=== PATIENT | female | born 1960 | race Caucasian/White ===

== ENCOUNTER 2017-05-25 15:48 | Emergency (ER) | payer OTHER, SELFPAY ==
[2017-05-25 16:16] VITALS: BP 124/91; PULSE 97; RESP 20; TEMP 37.6; O2SAT 97; BMI 30.7
--- NOTE | 2017-05-25 16:54 | ED_ITS ---
[facility] [place] Disposition Clinical Impression: URI (upper respiratory infection) Qualifiers: URI type: unspecified URI Qualified Code(s): J06.9 - Acute upper respiratory infection, unspecified Disposition: Home, Self-Care Condition on Discharge: Good Instructions: Sore Throat, Sinusitis, Sinus Headache Additional Instructions: * Monitor Temp. Tylenol and/or Ibuprofen as needed. ER if fever is no less than 101 despite alternating Tylenol and Ibuprofen * Encourage fluids, water, Gatorade, powerade, pedialyte if /toddler/or child * Warm salt water gargles for throat irritation *Warm fluids *Sore throat lozenges *Sleep elevated *humidifier or vaporizer Lots of rest Increase fluids, water, Gatorade, powerade *Your throat swab was sent to lab for culture. Those results area typically sent to your primary care physician. Be sure to follow up in 2-3 days if no improvement so they can review those results and treat if necessary If you don? t have primary care I recommend you get one, but in the mean time you will have to return to a walk in clinic Follow up IMMEDIATELY for new or worsening of symptoms OR no noticeable improvement over the next 48-72 hours. 911 immediately for any life threatening symptoms such as chest pain or difficulty breathing Referrals: Yulia Poon APRN [Primary Care Provider] - Time of Disposition: 16:58 Medical Decision Making - Medical Records Medical records reviewed: Yes: I reviewed the patient's medical records. Vital Signs: 05/25/17 16:16 Temperature 99.6 F Temperature Source Temporal Artery Scan Pulse Rate [Right] 97 H Respiratory Rate 20 Blood Pressure [Right Arm] 124/91 Blood Pressure Mean [Right Arm] 102 Blood Pressure Source [Right Arm] Automatic Cuff Blood Pressure Position [Right Arm] Sitting 02 Sat by Pulse Oximetry 97 Oxygen Delivery Method Room Air - Lab Data Lab results reviewed: Yes: I reviewed the patient's lab results. - Marco A Inquiry Pt receiving controlled substance: No Marco A was queried for this patient: No [facility] [place] HPI - General Stated complaint: cough, headache, sore throat Mode of Arrival: Ambulatory Source of Information: Patient Limitations: No Limitations Description of Symptoms (Recalled from Triage Doc. by RN): SORE THROAT,HEADACHE , COUGH HEENT Symptoms (Recalled from RN notes): Yes Resp Symptoms (Recalled from RN notes): No Skin Symptoms (Recalled from RN notes): No MS Symptoms (Recalled from RN notes): No Functional Status (Recalled from RN notes): N - History of Present Illness Provider Complaint: Patient state that she has been having some flu like symptoms States that she has had cough, sore throat, headache, sinus pain and pressure along with body aches States that she has been taking some over the counter medication but it has not helped with symptoms State that earlier today she began to run a low grade fever so she came in to get checked because she has a handicapt son at home - Related Data Home Medications Medication Instructions Recorded Confirmed aspirin 81 mg tablet,delayed 81 mg PO DAILY tab 05/10/17 05/25/17 release citalopram 20 mg tablet 20 mg PO DAILY tab 05/10/17 clopidogrel 75 mg tablet 75 mg PO DAILY tab 05/10/17 05/25/17 hydrochlorothiazide 25 mg tablet 25 mg PO .three times a week tab 05/10/1704/13 lisinopril 20 mg tablet 20 mg PO DAILY tab 05/10/17 05/25/17 lovastatin 20 mg table
[2017-05-25 17:25] VITALS: BP 122/84; PULSE 90; RESP 20; TEMP 37.2
[2017-05-25 18:43] LABS: UTC Influenza A Antigen Negative (Negative); UTC Influenza B Antigen Negative (Negative); UTC Strep Screen (Rapid) Negative (Negative)
== END 2017-05-25 17:37 | disposition home or self-care (01) ==
PROVIDERS: Emergency Provider Nurse Practitioner; PCP Nurse Practitioner Family
DX: J06.9 Acute upper respiratory infection, unspecified (principal); I10 Essential (primary) hypertension; Z87.891 Personal history of nicotine dependence; Z88.8 Allergy status to other drugs, medicaments and biological substances; Z79.82 Long term (current) use of aspirin
CPT/HCPCS: 87804; 87880; 96372; 99203

== ENCOUNTER → 2017-07-06 11:27 | Outpatient (CLI) | payer OTHER, SELFPAY ==
--- NOTE | 2017-07-06 11:29 | NM_ITS ---
History and Indications: Coronary artery disease, history of DC, hypertension, hyperlipidemia, family history and shortness of breath Procedure: Patient exercised on Anuj protocol 7 minutes, resting heart rate was 64 beats per resting blood pressure 136/77, with exercise maximum heart rate achieved was 153 beats prominent which is equal to 90% of the maximum predicted heart rate and a blood pressure was 174 with 82. Test was started due to shortness of breath, patient denied any complained of chest pain. Patient has adequate exercise capacity achieved 10.1mets of workload on treadmill, the blood pressure response to exercise was adequate. Electrocardiogram: Resting electrocardiogram showed sinus rhythm nonspecific ST-T changes, with exercise there is less than 1.[address] segment depression noted from the baseline EKG. The EKG portion of the exercise Myoview is negative for ischemia. Cardiac stress and resting SPECT images: Cardiac stress and rest SPECT images were obtained using technetium 99 Myoview 30.7 mCi at stress gated 10.2 mCi at rest gated SPECT further analysis of segmental wall motion and calculation of the ejection fraction also done. Cardiac stress and rest SPECT images show uniform myocardial activity without any segmental perfusion abnormality, computer derived ejection fraction is over 65% with no obvious regional wall motion abnormality, right ventricle is normal size and contractility. Conclusion: 1. The EKG portion of the exercise Myoview is negative for ischemia, patient has good exercise capacity achieved 10.1mets of workload on treadmill, the blood pressure response to exercise was adequate, there was no exercise-induced chest discomfort. 2. No obvious scintigraphic evidence of reversible ischemia seen, either derived ejection fraction is over 65% with no obvious regional wall motion abnormality, right ventricle is normal size and contractility. 3. Normal exercise Myoview study.
--- NOTE | 2017-07-06 12:26 | CA_ITS ---
PROCEDURE: 2-D M-mode and color Doppler study INDICATIONS FOR THE TEST: Chest pain COPD Heart Murmur Tobacco Smoking Palpitations Fatigue Syncope Edema Hypertension+Diabetes Mellitus Rheumatic Fever SOB SNELL+Obesity Hyperlipidemia+ Family History HD Additional History PATIENT INFORMATION HEIGHT: 65 WEIGHT:195 GENDER: Female B/P:131/77 2-D/M-MODE INTERPRETATION: 2-D MEASUREMENTS OBSERVED VALUES IN CMS Right Ventricular Dimension (RVDd) 2.3 Interventricular Septum (Thickness)(IVsd) 1.3 Left Ventricular Internal Dimensions(LVIDd) 5.4 Left Ventricular Posterior Wall (Thickness)(LVPWd) 0.8 Aortic Root 3.1 Aortic Cusp Separation 2.2 Left Atrial Dimensions (LAD) 4.0 2D 1. Left atrium is mildly enlarged, left ventricle is normal size, there is mild concentric left ventricular hypertrophy, visually estimated ejection fraction 55% with no obvious regional wall motion abnormality. 2. The right atrium and right ventricle are normal size and contractility. 3. The aortic valve is minimally thickened and fibrosed. 4. The mitral and tricuspid valve are structurally normal. 5. The pulmonic valve is poorly visualized. 6. No significant pericardial effusion noted. DOPPLER INTERROGATION: Doppler interrogation of the aortic, mitral and tricuspid valve reveals presence of mild mitral and tricuspid regurgitation, tricuspid and jet velocity insufficient for calculation of the right ventricular systolic pressure, grade 1 diastolic dysfunction seen with tissue Doppler evidence of raised left atrial pressure. CONCLUSION: 1. Mildly enlarged left atrium, normal left ventricular size, mild concentric left ventricular hypertrophy, visually estimated ejection fraction 55% with no obvious regional wall motion abnormality, grade 1 diastolic dysfunction seen with tissue Doppler evidence of raised left atrial pressure. 2. Mild mitral and tricuspid regurgitation 3. No significant pericardial effusion noted.
== END ==
PROVIDERS: PCP Nurse Practitioner Family; Visit Provider Internal Medicine
DX: J06.9 Acute upper respiratory infection, unspecified (principal); I25.10 Atherosclerotic heart disease of native coronary artery without angina pectoris; I11.9 Hypertensive heart disease without heart failure; E78.5 Hyperlipidemia, unspecified
CPT/HCPCS: 78452; 93017; 93306; A9502

== ENCOUNTER → 2017-07-10 07:32 | Outpatient (CLI) | payer OTHER, SELFPAY ==
[2017-07-10 08:02] LABS: Eosinophils # 0.1 K/mm3 (0.0-0.4); Eosinophils % 3.7 % (0.1-12.0); Hemoglobin 12.1 g/dL (12.2-16.2); Lymphocytes # 1.5 K/mm3 (0.7-4.5); Lymphocytes % 39.6 K/mm3 (10-50); Mean Corpuscular HGB Conc 32.7 g/dL (31.8-35.4); Mean Corpuscular Hemoglobin 28.1 pg (27.0-31.2); Mean Corpuscular Volume 85.9 fl (81-99); Mean Platelet Volume 7.6 fl (7.4-10.4); Monocytes # 0.2 K/mm3 (0.1-1.0); Monocytes % 4.4 % (1.7-9.3); Neutrophils % 51.2 % (37.0-80.0); Platelet Count 290 K/mm3 (142-424); Red Blood Count 4.31 M/mm3 (4.20-5.40); Red Cell Distribution Width 13.4 % (11.5-17.5); White Blood Count 3.9 K/mm3 (4.8-10.8)
[2017-07-10 10:06] LABS: Alanine Aminotransferase 24 U/L (12-78); Alkaline Phosphatase 86 U/L (46-116); Aspartate Amino Transferase 17 U/L (15-37); Bilirubin,Direct 0.2 mg/dL (0.0-0.2); Bilirubin,Total 0.5 mg/dL (0.2-1.0); Blood Urea Nitrogen 17 mg/dL (7-18); Carbon Dioxide 25 mmol/L (21.0-32.0); Chol/HDL Ratio 4.2 (1-3.5); Cholesterol 148 mg/dL (140-200); Creatinine,Serum 0.87 mg/dL (0.55-1.02); Estimated Glomerular Filt Rate 67 ml/min (>60); GFR (African American) 81 ML/MIN (>60); Glucose 109 mg/dL (74-106); HDL Cholesterol 35 mg/dL (29-89); LDL Cholesterol 58 mg/dL (0-130); Triglycerides 275 mg/dL (30-200); VLDL Cholesterol 55 mg/dL (0-40)
[2017-07-10 10:13] LABS: Chloride 104 mmol/L (98-107); Potassium 3.7 mmoL/L (3.5-5.1); Sodium 140 mmol/L (136-145)
[2017-07-10 10:17] LABS: Hemoglobin A1C 5.9 % (0.0-7.0)
[2017-07-10 12:19] LABS: Glucose,Fasting 113 mg/dL (60-105)
[2017-07-10 13:17] LABS: Glucose 1 Hour 132 mg/dL (74-106); Glucose 2 Hour 106 mg/dL (74-106)
== END ==
PROVIDERS: Visit Provider Internal Medicine
DX: R06.09 Other forms of dyspnea (principal); I25.10 Atherosclerotic heart disease of native coronary artery without angina pectoris; I11.9 Hypertensive heart disease without heart failure; J06.9 Acute upper respiratory infection, unspecified; E78.5 Hyperlipidemia, unspecified
CPT/HCPCS: 36415; 80048; 80061; 80076; 82951; 83036; 85025

== ENCOUNTER → 2017-10-11 11:07 | Outpatient (REF) | payer OTHER, SELFPAY ==
[2017-10-11 17:43] LABS: Basophils % 0.9 % (0.1-2.0); Eosinophils # 0.1 K/mm3 (0.0-0.4); Eosinophils % 2.2 % (0.1-12.0); Hemoglobin 11.8 g/dL (12.2-16.2); Lymphocytes # 1.2 K/mm3 (0.7-4.5); Lymphocytes % 27.9 K/mm3 (10-50); Mean Corpuscular HGB Conc 32.8 g/dL (31.8-35.4); Mean Corpuscular Hemoglobin 27.8 pg (27.0-31.2); Mean Corpuscular Volume 84.6 fl (81-99); Mean Platelet Volume 8.2 fl (7.4-10.4); Monocytes # 0.3 K/mm3 (0.1-1.0); Monocytes % 6.1 % (1.7-9.3); Neutrophils # 2.7 K/mm3 (1.8-7.8); Neutrophils % 62.9 % (37.0-80.0); Platelet Count 289 K/mm3 (142-424); Red Blood Count 4.26 M/mm3 (4.20-5.40); Red Cell Distribution Width 13.3 % (11.5-17.5); White Blood Count 4.4 K/mm3 (4.8-10.8)
== END ==
LOC: LAB 11:07
PROVIDERS: Visit Provider Nurse Practitioner Family
DX: Z13.1 Encounter for screening for diabetes mellitus (principal); R53.83 Other fatigue
CPT/HCPCS: 83036; 85025

== ENCOUNTER → 2018-07-03 07:54 | Outpatient (CLI) | payer OTHER, SELFPAY ==
[2018-07-03 08:23] LABS: Basophils # 0.1 K/mm3 (0-0.2); Eosinophils # 0.1 K/mm3 (0.0-0.4); Eosinophils % 2.3 % (0.1-12.0); Hematocrit 34.7 % (37.0-47.0); Lymphocytes # 1.6 K/mm3 (0.7-4.5); Lymphocytes % 33.1 % (10-50); Mean Corpuscular HGB Conc 34.6 g/dL (31.8-35.4); Mean Corpuscular Hemoglobin 28.4 pg (27.0-31.2); Monocytes # 0.2 K/mm3 (0.1-1.0); Monocytes % 4.7 % (1.7-9.3); Neutrophils # 2.8 K/mm3 (1.8-7.8); Neutrophils % 58.8 % (37.0-80.0); Platelet Count 297 K/mm3 (142-424); Red Blood Count 4.23 M/mm3 (4.20-5.40); Red Cell Distribution Width 13.4 % (11.5-17.5); White Blood Count 4.8 K/mm3 (4.8-10.8)
[2018-07-03 09:48] LABS: Alanine Aminotransferase 25 U/L (12-78); Albumin Level 4.1 gm/dL (3.4-5.0); Albumin/Globulin Ratio 1.3 (1.1-1.8); Alkaline Phosphatase 87 U/L (46-116); Anion Gap 17.6 mEq/L (5-15); Aspartate Amino Transferase 17 U/L (15-37); Bilirubin,Total 0.8 mg/dL (0.2-1.0); Blood Urea Nitrogen 20 mg/dL (7-18); Calcium 9.5 mg/dL (8.5-10.1); Carbon Dioxide 24 mmol/L (21.0-32.0); Chloride 104 mmol/L (98-107); Chol/HDL Ratio 4.1 (1-3.5); Cholesterol 165 mg/dL (140-200); Creatinine,Serum 1.04 mg/dL (0.55-1.02); Estimated Glomerular Filt Rate 54 ml/min (>60); GFR (African American) 66 ML/MIN (>60); Globulin 3.2 gm/dl (1.3-3.2); Glucose 108 mg/dL (74-106); HDL Cholesterol 40 mg/dL (29-89); LDL Cholesterol 89 mg/dL (0-130); Potassium 3.6 mmoL/L (3.5-5.1); Sodium 142 mmol/L (136-145); T4 (Thyroxine) 8.1 ug/dl (4.7-13.3); Total Protein,Serum 7.3 gm/dL (6.4-8.2); Triglycerides 180 mg/dL (30-200); VLDL Cholesterol 36 mg/dL (0-40)
[2018-07-04 14:28] LABS: Vitamin D 25 Hydroxy 17.2 ng/mL (30.0-100.0)
== END ==
PROVIDERS: Visit Provider Nurse Practitioner Family
DX: E78.2 Mixed hyperlipidemia (principal); R53.83 Other fatigue
CPT/HCPCS: 36415; 80053; 80061; 82652; 84436; 84443; 85025

== ENCOUNTER → 2018-08-17 08:32 | Outpatient (CLI) | payer OTHER, SELFPAY ==
--- NOTE | 2018-08-17 08:35 | MM_ITS ---
MM Dig screening mamm BI w/CAD ORDERING PHYSICIAN : Yulia Poon APRN PATIENT AGE: 57 years GENDER: Female COMPARISON: October 2013 & 2014, November 2015, 2016 INDICATION: ITS.Routine screening mammogram with no new complaints. No hormones. Noncontributory family history. TECHNIQUE: Standard CC and MLO images were obtained. R2 CAD reviewed. FINDINGS: RIGHT BREAST:No new areas of significant concern . Follow-up in one year Asymmetric area of density towards upper-outer quadrant right breast..Appears to be an asymmetric island of fibroglandular tissue, with no significant change here since several previous studies dating back to at least 2013. Stable dense benign calcification 12:00 LEFT BREAST:Stable left breast.: One year follow-up. Small 8 mm density the breast with no significant change since studies dating back to 2013 IMPRESSION: ......... No significant new areas of concern .Stable bilateral mammogram. Stable areas of asymmetry Bilateral follow-up in one year recommended BI-RADS Category: 1 Negative RECOMMENDED FOLLOW-UP: 1YR 1 YEAR FOLLOW-UP (A letter has been sent to the patient regarding results of the study.)
== END ==
PROVIDERS: PCP Nurse Practitioner Family; Visit Provider Nurse Practitioner Family
DX: Z12.31 Encounter for screening mammogram for malignant neoplasm of breast (principal)
CPT/HCPCS: 77067

== ENCOUNTER → 2018-09-07 07:28 | Outpatient (CLI) | payer OTHER, SELFPAY ==
[2018-09-07 08:09] LABS: Basophils # 0.1 K/mm3 (0-0.2); Eosinophils # 0.1 K/mm3 (0.0-0.4); Eosinophils % 3.1 % (0.1-12.0); Hematocrit 34.7 % (37.0-47.0); Hemoglobin 11.1 g/dL (12.2-16.2); Lymphocytes # 1.5 K/mm3 (0.7-4.5); Lymphocytes % 33.2 % (10-50); Mean Corpuscular HGB Conc 32.1 g/dL (31.8-35.4); Mean Corpuscular Hemoglobin 26.3 pg (27.0-31.2); Monocytes # 0.2 K/mm3 (0.1-1.0); Neutrophils # 2.6 K/mm3 (1.8-7.8); Neutrophils % 57.7 % (37.0-80.0); Platelet Count 321 K/mm3 (142-424); Red Blood Count 4.23 M/mm3 (4.20-5.40); Red Cell Distribution Width 13.2 % (11.5-17.5); White Blood Count 4.6 K/mm3 (4.8-10.8)
[2018-09-07 08:48] LABS: Alanine Aminotransferase 39 U/L (12-78); Albumin Level 3.8 gm/dL (3.4-5.0); Albumin/Globulin Ratio 1.3 (1.1-1.8); Alkaline Phosphatase 87 U/L (46-116); Anion Gap 11.9 mEq/L (5-15); Aspartate Amino Transferase 26 U/L (15-37); Bilirubin,Total 0.6 mg/dL (0.2-1.0); Blood Urea Nitrogen 17 mg/dL (7-18); Calcium 9.3 mg/dL (8.5-10.1); Carbon Dioxide 28 mmol/L (21.0-32.0); Chloride 104 mmol/L (98-107); Chol/HDL Ratio 4.1 (1-3.5); Cholesterol 147 mg/dL (140-200); Creatinine,Serum 0.94 mg/dL (0.55-1.02); Estimated Glomerular Filt Rate 61 ml/min (>60); GFR (African American) 74 ML/MIN (>60); Glucose 110 mg/dL (74-106); HDL Cholesterol 36 mg/dL (29-89); LDL Cholesterol 70 mg/dL (0-130); Potassium 3.9 mmoL/L (3.5-5.1); Sodium 140 mmol/L (136-145); T4 (Thyroxine) 7.5 ug/dl (4.7-13.3); Thyroid Stimulating Hormone 2.63 uIU/ml (0.358-3.740); Total Protein,Serum 6.8 gm/dL (6.4-8.2); Triglycerides 206 mg/dL (30-200); VLDL Cholesterol 41 mg/dL (0-40)
[2018-09-08 18:04] LABS: Vitamin D 25 Hydroxy 38.8 ng/mL (30.0-100.0)
== END ==
PROVIDERS: Visit Provider Nurse Practitioner Family
DX: I11.9 Hypertensive heart disease without heart failure (principal); R53.83 Other fatigue; E78.5 Hyperlipidemia, unspecified; E55.9 Vitamin D deficiency, unspecified
CPT/HCPCS: 36415; 80053; 80061; 82652; 84436; 84443; 85025

== ENCOUNTER → 2018-10-03 07:17 | Outpatient (CLI) | payer OTHER, SELFPAY ==
[2018-10-03 10:29] LABS: Hemoglobin A1C 5.9 % (0.0-7.0)
== END ==
PROVIDERS: Visit Provider Nurse Practitioner Family
DX: R73.09 Other abnormal glucose (principal)
CPT/HCPCS: 36415; 83036

== ENCOUNTER → 2018-10-22 12:50 | Outpatient (CLI) | payer OTHER, SELFPAY | PROVIDERS: PCP Emergency Medicine; Visit Provider Nurse Practitioner Family | DX: R06.83 Snoring (principal); G47.33 Obstructive sleep apnea (adult) (pediatric) | CPT/HCPCS: 95806 ==

== ENCOUNTER → 2019-09-12 08:26 | Outpatient (CLI) | payer OTHER, SELFPAY ==
--- NOTE | 2019-09-12 08:33 | XR_ITS ---
PROCEDURE: XR KNEE RT 4V CLINICAL INDICATION: knee pain Chronic COMPARISON: No exams were available for comparison FINDINGS: There is mild joint space narrowing medially and mild spurring of the tibial spines. There is mild narrowing of the patellofemoral space. There is no effusion there is no fracture or loose body seen. IMPRESSION: Mild degenerative changes as noted above Dictated by: Dr. Vinh Keenan MD 09/12/2019 09:[address] Vinh Keenan MD in [place] 09/12/2019 09:00
== END ==
PROVIDERS: PCP Emergency Medicine; Visit Provider Orthopaedic Surgery
DX: M25.561 Pain in right knee (principal)
CPT/HCPCS: 73564

== ENCOUNTER 2019-11-06 17:00 | Outpatient (RCR) | payer OTHER, SELFPAY ==
--- NOTE | 2019-10-02 17:46 | HMH.PTOPEV ---
PT Outpatient Evaluation Rehab PT Outpatient Evaluation Start: 10/02/19 17:35 Freq: Status: Active Protocol: Document 10/02/19 17:35 KRISTINE (Rec: 10/02/19 17:46 KRISTINE [id number]) Electronically Signed By Bello Schuster, PT 10/02/19 17:35 Outpatient Therapy Subjective History Subjective History Patient is a 58 year old female presenting to outpatient PT with reports of chronic R knee pain of insidious onset starting approximately 4 months ago. Most recent imaging indicates mild degenerative changes. Comorbidities include HTN, stent x 1, HL and hysterectomy . Chief Complaint Pain,Weakness Symptom Type Sharp,Dull Symptoms Relieved By Rest/Positioning,Activity Symptoms Aggravated By Standing,Physical Activity, Walking Prior Functional Limitations None Current Functional Limitations Housework,Standing,Squatting, Recreation Activity,Walking, Stairs Symptom Description Constant but Variable Level of pain today (0-10) 2 Pain scale - at its best (0-10) 1 Pain scale - at its worst (0-10) 8 Hip/Knee Eval Gait Observation General Gait Pattern Observation Antalgic Gait,Decrease Weight Bear (R) Assistive Device Assistive Devices None / NA Palpation Tenderness right Knee Palpation Finding Tenderness Knee Palpation Overall Comment Patellar tendon, medial joint line, medial HS 3/4 MMT Hip Flexion Strength Grade 4 Good Hip Abduction Strength Grade 4- Good- Hip Adduction Strength Grade 4- Good- Hip Extension Strength Grade 3+ Fair+ Hip External Rotation Strength Grade 4- Good- Hip Internal Rotation Strength Grade 4- Good- Knee Extension Strength Grade 4- Good- Knee Flexion Strength Grade 4 Good ROM bilateral Hip ROM Reason Not Measured Within Functional Limits Knee ROM Reason Not Measured Within Functional Limits Special Tests Knee Anterior Drawer Test Negative Right Knee Anterior Sameer Test Negative Right Knee Pivot Shift Test Negative Right Knee Valgus Stress Test Negative Right Knee Varus Stress Test Negative Right Knee Jim Test Positive Right Outpatient Therapy Assessment Impairments Problems/Impairmments Palpation Tenderness,Impaired Strength,Impaired Walking, Impaired Sta
== END 2019-11-06 18:00 | disposition home or self-care (01) ==
LOC: PT 17:00
PROVIDERS: PCP Nurse Practitioner Family; Visit Provider Orthopaedic Surgery
DX: M17.11 Unilateral primary osteoarthritis, right knee (principal)
CPT/HCPCS: 97110; 97163

== ENCOUNTER 2019-11-30 09:49 | Emergency (ER) | payer OTHER, SELFPAY ==
[2019-11-30 09:51] VITALS: BP 136/86; PULSE 56; RESP 17; TEMP 36.8; O2SAT 100; BMI 32.4
--- NOTE | 2019-11-30 10:02 | HMH.EDBACK ---
ED Disposition Clinical Impression: Strain of lumbar region Qualifiers: Encounter type: initial encounter Qualified Code(s): S39.012A - Strain of muscle, fascia and tendon of lower back, initial encounter Disposition: Home, Self-Care Condition on Discharge: Good Instructions: DI for Low Back Pain Prescriptions: Cyclobenzaprine HCl [Flexeril 10mg tablet] 5 mg PO TID PRN #5 tab PRN Reason: spasm Prescription Printed Naproxen 500 mg PO BID PRN #10 tab PRN Reason: pain Prescription Printed Referrals: Yulia Poon APRN [Primary Care Provider] - - Critical Care Critical Care Time: No Attestation: On , the high probability of a clinically significant, sudden or life threatening deterioration of the following system(s) required my full and direct attention, intervention and personal management. The time I documented below is in addition to time spent performing reported procedures but includes the following listed in this critical care notation. Medical Decision Making - Medical Records Medical records reviewed: Yes: I reviewed the patient's medical records. - Marco A Inquiry Pt receiving controlled substance: No Vital Signs: 11/30/19 09:51 Temperature 98.2 F Temperature Source Oral Pulse Rate [Right] 56 L Respiratory Rate 17 Blood Pressure [Right Arm] 136/86 Blood Pressure Mean [Right Arm] 102 02 Sat by Pulse Oximetry 100 Orders (Tests/Meds): ED MEDICATIONS Discontinued Medications Generic Name Dose Route Start Last Admin Trade Name Freq PRN Reason Stop Dose Admin Cyclobenzaprine HCl 5 mg 11/30/19 10:02 Flexeril 10mg Tablet PO 11/30/19 10:03 ONCE ONE Ketorolac Tromethamine 30 mg 11/30/19 10:02 Toradol 60mg/2ml Vial IM 11/30/19 10:03 ONCE ONE Medical Decision Narrative: Patient with lumbar strain. No urinary symptoms, unlikely UTI. No CVA tenderness or fever, unlikely obstructive uropathy or pyelonephritis. No fever, unlikely epidural abscess, discitis. Patient describes a mechanical cause of her back pain with no blunt trauma that would prompt imaging. Recommended conservative therapy at home and given muscle relaxer, anti-inflammatory here. Advised follow-up with primary care provider in 2 to 3 days for reevaluation. Back Pain HPI - General Chief Complaint: Back Pain/Injury Stated Complaint: 8/31/20 pulled muscle in back Time Seen by Provider: 11/30/19 10:02 Mode of Arrival: Ambulatory Limitations: No Limitations Description of Symptoms (Recalled from ER Triage Doc. by RN): PT STATES SHE PULLED A MUSCLE IN HER BACK ON MONDAY AFTER BENDING OVER TO PICK SOMETHING AND FELT IT PULL. PT STATES THE PAIN IS IN THE MIDDLE OF HER BACK AND RADIATES INTO BOTH HER HIPS. - History of Present Illness HPI Narrative: This is a 58-year-old female with a past medical history significant for hypertension, hyperlipidemia who presents to the emergency department for low back pain that is been present for the last 5 days. It started when she was bending over and picking up toys off the floor. This happens to her usually about once a year and usually resolves with conservative therapy at home. She has been trying icy hot, Tylenol, heating pads, ice packs with only temporary resolution of symptoms. She denies any lateralizing motor or sensory changes. Pain is worse with movement. She denies any loss of bowel or bladder control or recent fevers. - Related Data Home Medications Medication Instructions Recorded Confirmed Ergocalciferol (Vitamin D2) 50,000 unit PO QWEEK 08/21/18 10/09/19 [Drisdol] Previous Rx's Medication Instructions Recorded nitroglycerin 0.4 mg sublingual 0.4 mg SUBLINGUAL Q5M PRN #30 tab 03/23/18 tablet Fluticasone Propionate [Flonase 2 spr NS DAILY #1 bottle 01/27/19 50mcg nasal spray 16gm] trazodone 50 mg tablet 25 mg PO QHS PRN 30 Days #30 tab 02/04/19 hydrochlorothiazide 25 mg tablet See Rx Instructions .ROUTE 09/17/19 .CO
[2019-11-30 11:08] VITALS: BP 122/78; PULSE 80; RESP 17; TEMP 36.8; O2SAT 100
== END 2019-11-30 11:10 | disposition home or self-care (01) ==
PROVIDERS: Emergency Provider Emergency Medicine; PCP Nurse Practitioner Family
DX: S39.012A Strain of muscle, fascia and tendon of lower back, initial encounter (principal); X50.0XXA Overexertion from strenuous movement or load, initial encounter; Y92.019 Unspecified place in single-family (private) house as the place of occurrence of the external cause; I10 Essential (primary) hypertension; E78.5 Hyperlipidemia, unspecified; I25.10 Atherosclerotic heart disease of native coronary artery without angina pectoris; I25.2 Old myocardial infarction; Z87.891 Personal history of nicotine dependence; Z79.899 Other long term (current) drug therapy
CPT/HCPCS: 96372; 99281

== ENCOUNTER → 2020-01-29 08:54 | Outpatient (CLI) | payer OTHER, SELFPAY ==
[2020-01-29 09:45] LABS: Basophils % 0.7 % (0.1-2.0); Eosinophils # 0.2 K/mm3 (0.0-0.4); Eosinophils % 2.5 % (0.1-12.0); Hematocrit 36.2 % (37.0-47.0); Hemoglobin 11.6 g/dL (12.2-16.2); Lymphocytes # 1.3 K/mm3 (0.7-4.5); Lymphocytes % 21.8 % (10-50); Mean Corpuscular HGB Conc 32.1 g/dL (31.8-35.4); Mean Corpuscular Hemoglobin 27.4 pg (27.0-31.2); Mean Corpuscular Volume 85.4 fl (81-99); Mean Platelet Volume 7.3 fl (7.4-10.4); Monocytes # 0.3 K/mm3 (0.1-1.0); Monocytes % 4.7 % (1.7-9.3); Neutrophils # 4.2 K/mm3 (1.8-7.8); Neutrophils % 70.2 % (37.0-80.0); Platelet Count 298 K/mm3 (142-424); Red Blood Count 4.24 M/mm3 (4.20-5.40); Red Cell Distribution Width 13.6 % (11.5-17.5)
[2020-01-29 10:36] LABS: Chloride 104 mmol/L (98-107)
[2020-01-29 10:37] LABS: Sodium 139 mmol/L (136-145)
[2020-01-29 10:39] LABS: Alanine Aminotransferase 20 U/L (12-78); Alkaline Phosphatase 77 U/L (38-126); Aspartate Amino Transferase 28 U/L (14-36); Bilirubin,Direct 0.1 mg/dl (0.0-0.4); Bilirubin,Indirect 0.6 mg/dL (0.0-0.9); Bilirubin,Total 0.7 mg/dl (0.2-1.3); Bilirubin,Unconjugated 0.6 mg/dL (0.0-1.1); Blood Urea Nitrogen 19 mg/dl (7-17); Carbon Dioxide 26 mmol/L (22.0-30.0); Cholesterol 190 mg/dl (140-200); Estimated Glomerular Filt Rate 64 ml/min (>60); GFR (African American) 77 ML/MIN (>60); Triglycerides 331 mg/dl (30-150); VLDL Cholesterol 66 mg/dL (0-40)
[2020-01-29 10:40] LABS: Albumin Level 4.6 g/dl (3.5-5.0); Chol/HDL Ratio 4.8 (1-3.5); Glucose 103 mg/dl (74-100); HDL Cholesterol 40 mg/dl (40-60); Total Protein,Serum 7.2 g/dl (6.3-8.2)
[2020-01-29 10:51] LABS: Direct LDL Cholesterol 70.99 mg/dL (100-129)
== END ==
PROVIDERS: Visit Provider Physician Assistant
DX: I25.10 Atherosclerotic heart disease of native coronary artery without angina pectoris (principal); E78.5 Hyperlipidemia, unspecified; I11.9 Hypertensive heart disease without heart failure
CPT/HCPCS: 36415; 80048; 80061; 80076; 85025

== ENCOUNTER 2020-10-08 17:35 | Emergency (ER) | payer OTHER, SELFPAY ==
[2020-10-08 17:40] VITALS: BP 129/90; PULSE 85; RESP 19; TEMP 36.6; O2SAT 96; BMI 33.3
--- NOTE | 2020-10-08 17:44 | XR_ITS ---
PROCEDURE INFORMATION: Exam: XR Left Ankle Exam date and time: 10/08/2020 5:44 PM Age: 59 years old Clinical indication: Injury or trauma; Fall; Sprain or strain; Ankle; Left TECHNIQUE: Imaging protocol: XR Left ankle. Views: 3 or more views. COMPARISON: No relevant prior studies available. FINDINGS: Bones/joints: Normal. Soft tissues: Normal. IMPRESSION: No acute findings.
--- NOTE | 2020-10-08 17:44 | XR_ITS ---
PROCEDURE INFORMATION: Exam: XR Right Wrist Exam date and time: 10/08/2020 5:44 PM Age: 59 years old Clinical indication: Injury or trauma; Fall; Blunt trauma (contusions or hematomas); Wrist; Right TECHNIQUE: Imaging protocol: XR Right wrist. Views: 3 or more views. COMPARISON: No relevant prior studies available. FINDINGS: Bones/joints: Normal. Mild degenerative changes. No displaced fractures. Soft tissues: Normal. IMPRESSION: No acute findings.
--- NOTE | 2020-10-08 18:26 | HMH.EDUTC ---
[facility] [place] Clinical Impression: Ankle sprain Qualifiers: Encounter type: initial encounter Involved ligament of ankle: unspecified ligament Laterality: left Qualified Code(s): S93.402A - Sprain of unspecified ligament of left ankle, initial encounter Wrist sprain Qualifiers: Encounter type: initial encounter Laterality: right Qualified Code(s): S63.501A - Unspecified sprain of right wrist, initial encounter Disposition: Home, Self-Care Condition on Discharge: Good Instructions: How To Perform RICE (Rest, Ice, Compress, Elevate), How to Apply an Ino Wrap Additional Instructions: *weight bearing as tolerated *RICE, Rest the extremity, Ice 15-20 minutes 3-4 times daily, Compress- wear the ino wrap as discussed as much as possible to help reduce swelling and pain, Elevate the extremity when at rest *Ino wrap is for support and help control swelling, use it except in the shower. Be sure that is not to tight but not to loose either *Elevate when resting *Ibuprofen every 6-8 hours as needed for pain an inflammation if your doctor has said that you can take it If need something more can take Tylenol in between doses of Ibuprofen to help Immediately follow up with your family doctor for new or worsening of symptoms, or no noticeable improvement over the next 3-5 days Referrals: Yulia Poon APRN [Primary Care Provider] - As needed Time of Disposition: 18:34 Medical Decision Making - Marco A Inquiry Pt receiving controlled substance: No Marco A was queried for this patient: No Vital Signs: 10/08/20 17:40 Temperature 97.8 F Temperature Source Oral Pulse Rate [Right Brachial] 85 Respiratory Rate 19 Blood Pressure [Right Arm] 129/90 Blood Pressure Mean [Right Arm] 103 Blood Pressure Source [Right Arm] Automatic Cuff Blood Pressure Position [Right Arm] Sitting 02 Sat by Pulse Oximetry 96 Oxygen Delivery Method Room Air - Radiology Data #1 Image(s): Ankle Image Reviewed: Yes I have reviewed radiologist's interpretation IMPRESSION: No acute findings. #2 Image(s): Wrist Image Reviewed: Yes I have reviewed radiologist's interpretation IMPRESSION: No acute findings. [facility] [place] HPI - General Stated complaint: AO 10/08@0930injured R wrist.L ankle Time Seen by Provider: 10/08/20 18:10 Mode of Arrival: Ambulatory Source of Information: Patient Limitations: No Limitations Description of Symptoms (Recalled from Triage Doc. by RN): PATIENT STATES SHE WAS WALKING THIS MORNING AND FELL OFF EDGE OF SIDEWALK. C/O RIGHT WRIST AND LEFT ANKLE PAIN HEENT Symptoms (Recalled from RN notes): No Resp Symptoms (Recalled from RN notes): No Skin Symptoms (Recalled from RN notes): No MS Symptoms (Recalled from RN notes): Yes Functional Status (Recalled from RN notes): WNL - History of Present Illness Provider Complaint: Patient states that she was walking on the sidewalk this morning when she looked off and accidently stepped off the side of the side walk and rolled her left ankle and fell and hurt her right wrist also States that she has been out and about all day walking on her ankle and using her wrist but this evening her ankle was swollen and hurting worse so she came in to get it checked Denies any other injury - Related Data Home Medications Medication Instructions Recorded Confirmed Ergocalciferol (Vitamin D2) 50,000 unit PO QWEEK 08/21/18 10/07/20 [Drisdol] Previous Rx's Medication Instructions Recorded nitroglycerin 0.4 mg sublingual 0.4 mg SUBLINGUAL Q5M PRN #30 tab 03/23/18 tablet Fluticasone Propionate [Flonase 2 spr NS DAILY #1 bottle 01/27/19 50mcg nasal spray 16gm] Cyclobenzaprine HCl [Flexeril 10mg 5 mg PO TID PRN #5 tab 11/30/19 tablet] Naproxen 500 mg PO BID PRN #10 tab 11/30/19 trazodone 50 mg tablet 25 mg PO QHS PRN 30 Days #30 tab 02/12/20 bupropion HCl 75 mg tablet 75 mg PO DAILY #90 tab 03/24/20 citalopram 20 mg tablet See Rx Instructions .ROUTE 07/16/20 .COMPLEX #9
[2020-10-08 18:35] VITALS: BP 129/90; PULSE 85; RESP 19; TEMP 36.6; O2SAT 96
== END 2020-10-08 18:38 | disposition home or self-care (01) ==
PROVIDERS: Emergency Provider Nurse Practitioner; PCP Nurse Practitioner Family
DX: S93.402A Sprain of unspecified ligament of left ankle, initial encounter (principal); S63.501A Unspecified sprain of right wrist, initial encounter; W01.0XXA Fall on same level from slipping, tripping and stumbling without subsequent striking against object, initial encounter; Y92.480 Sidewalk as the place of occurrence of the external cause; I25.10 Atherosclerotic heart disease of native coronary artery without angina pectoris; I10 Essential (primary) hypertension; E78.5 Hyperlipidemia, unspecified; I25.2 Old myocardial infarction; Z87.891 Personal history of nicotine dependence; Z79.899 Other long term (current) drug therapy
CPT/HCPCS: 73110; 73610; 99202; G0463

== ENCOUNTER → 2020-11-04 08:23 | Outpatient (CLI) | payer OTHER, SELFPAY ==
--- NOTE | 2020-11-04 08:28 | XR_ITS ---
PROCEDURE: XR KNEE LT 4V CLINICAL INDICATION: left knee pain COMPARISON: CR XR KNEE RT 4V from 09/12/2019 FINDINGS: No fracture or dislocation. No lytic or blastic change. There is normal mineralization. There is mild the medial joint space with minimal osteophytes here and at the patellofemoral joint. Other findings:None. IMPRESSION: Minimal osteoarthritic change of the medial compartment and patellofemoral. Dictated by: Jewel Bermudez MD 11/04/2020 14:49 Jewel Bermudez MD in [place] 11/04/2020 14:49
--- NOTE | 2020-11-04 08:28 | XR_ITS ---
PROCEDURE: XR KNEE RT 4V CLINICAL INDICATION: RT knee pain COMPARISON: CR XR KNEE RT 4V from 09/12/2019 FINDINGS: No fracture or dislocation. No lytic or blastic change. There is normal mineralization. There is slight decrease in the joint space medially. There is minimal spurring along the superior aspect of the patellofemoral joint Other findings:None. IMPRESSION: Minimal osteoarthritic change of the medial compartment and patellofemoral joint which appear stable Dictated by: Jewel Bermudez MD 11/04/2020 14:47 Jewel Bermudez MD in [place] 11/04/2020 14:47
== END ==
PROVIDERS: PCP Nurse Practitioner Family; Visit Provider Orthopaedic Surgery
DX: M25.561 Pain in right knee (principal); M25.562 Pain in left knee
CPT/HCPCS: 73564

== ENCOUNTER → 2021-10-27 08:48 | Outpatient (CLI) | payer OTHER, SELFPAY | PROVIDERS: PCP Physician Assistant; Visit Provider Surgery | DX: Z01.812 Encounter for preprocedural laboratory examination (principal); Z20.822 Contact with and (suspected) exposure to COVID-19; Z12.11 Encounter for screening for malignant neoplasm of colon; Z86.010 Personal history of colon polyps | CPT/HCPCS: C9803; U0003; U0005 ==

== ENCOUNTER 2021-10-29 08:17 | Day surgery (SDC) | payer OTHER, SELFPAY ==
[2021-10-27 09:11] VITALS: BMI 28.3
[2021-10-29 08:36] VITALS: BP 125/74; PULSE 68; RESP 18; TEMP 36.6; O2SAT 95
[2021-10-29 09:09] VITALS: O2SAT 95
--- NOTE | 2021-10-29 09:18 | P.PN_ITS ---
[facility] Anesthesia Checklist - Patient Identification Patient Identification: Arm Band - Structural Data Admitted From: Home Planned Operative Procedure/s: colonoscopy Consent for Planned Operative Procedure(s) Verified: Yes Verified Documents: Surgical Consent, History and Physical - NPO Status Verified Time NPO: 00:00 - Additional verifications Anesthesia Reactions: No Hx Blood Transfusions: No Blood Transfusion Reaction: No - Airway Assessment C-Spine Mobility Assessed: Yes (mp2) TMJ Mobility Assessed: Yes Dentition: Edentulous - Neurological Assessment Level of Consciousness: Awake, Alert - Anesthesia Plan Anesthesia Risk discussed: Yes Anesthesia Plan: Verified ASA Class: III Anesthesia Type: [facility] History I have reviewed the patient's past medical history: Yes Medical History: Reports:: Coronary Artery Disease, Hyperlipidemia, Hypertension, Myocardial Infarction Denies:: Cancer, Diabetes Mellitus Type 1, Diabetes Mellitus Type 2, Internal Pacemaker, Lung Disease, MRSA, Seizures *Have you ever received a pneumonia vaccine?: No *Have you received a flu vaccine this season?: Yes Other Medical History: Reports: Arthritis. Denies: Blood Transfusion Reaction Anesthesia experience/problems:: nac Other Surgeries: Yes: Cardiac Catheterization, Colonoscopy, Coronary Stent, Hysterectomy-Total, Other. No: Pacemaker Amputation: No Fractures: No - *Social History Last grade of school completed: 11th or 12th Smoking Status: Former smoker #Yrs smoked (if former smoker): 30 Alcohol Intake: former Substance Use Type: denies use *Occupational Status:: disabled Housing: house Household Members: children *Travel in the last 8 weeks: None Family Hx:: Coronary Artery Disease
--- NOTE | 2021-10-29 09:35 | HMH.SCOPE ---
- Procedure: Date: 10/29/21 Patient Date of :: 1960 Procedure Performed:: Total colonoscopy to terminal ileum with biopsy polypectomy Indications:: Patient is a 60-year-old female who has family history of colon cancer in her mother. She underwent colonoscopy in 2013 and had tubular adenoma. Colonoscopy July 2018 she had a couple of tubular adenomas. 3-year follow-up colonoscopy was recommended. Performing Provider:: Mahamed Miller MD Referring Provider:: Cyndy Lowe Sedation:: MAC sedation Procedure:: Patient was taken to endoscopy procedure room. She was positioned in lateral decubitus position. Adequate intravenous sedation was achieved with anesthesia titration of propofol. Variable stiffness Olympus colonoscope was inserted via the anus. Is advanced to the cecum. Ileocecal valve and appendiceal orifice were clearly identified. Colonoscope was advanced a short distance into the terminal ileum which appeared grossly normal. Colonoscope was slowly withdrawn through the colon with careful surveillance. There was some particulate stool and occasional vegetable matter. Irrigation and suctioning was performed. In the rectosigmoid region there were a couple of diminutive hyperplastic appearing polyps removed with cold biopsy forceps. Retroflexion within the rectum revealed no evidence of any pathologic internal hemorrhoids. Colonoscope was withdrawn. Findings:: Mild diverticulosis Diminutive hyperplastic appearing rectosigmoid polyps Recommendations:: Follow-up colonoscopy based on pathology. Likely 5 years Complications:: None immediately apparent Estimated blood obtained (mL): 1
[2021-10-29 09:36] VITALS: BP 105/59; PULSE 54; RESP 16; TEMP 36.1; O2SAT 90
[2021-10-29 09:46] VITALS: BP 116/73; PULSE 60; RESP 16; TEMP 36.1; O2SAT 93
[2021-10-29 09:56] VITALS: BP 123/74; PULSE 51; RESP 18; TEMP 36.1; O2SAT 98
[2021-10-29 10:06] VITALS: BP 128/63; PULSE 64; RESP 18; TEMP 36.1; O2SAT 98
== END 2021-10-29 10:06 | disposition home or self-care (01) ==
LOC: OUTP 08:18
PROVIDERS: PCP Physician Assistant; Visit Provider Surgery
PROC: 0DJD8ZZ Inspection of Lower Intestinal Tract, Via Natural or Artificial Opening Endoscopic (ICD-10-PCS; CPT 45380; principal; 2021-10-29 09:30)
DX: Z12.11 Encounter for screening for malignant neoplasm of colon (principal); K63.5 Polyp of colon; Z80.0 Family history of malignant neoplasm of digestive organs; Z86.010 Personal history of colon polyps; I25.10 Atherosclerotic heart disease of native coronary artery without angina pectoris; I10 Essential (primary) hypertension; E78.5 Hyperlipidemia, unspecified; I25.2 Old myocardial infarction; Z79.899 Other long term (current) drug therapy
CPT/HCPCS: 45380

== ENCOUNTER → 2021-12-30 14:17 | Outpatient (CLI) | payer OTHER, SELFPAY ==
[2021-12-30 17:47] LABS: Adenovirus,PCR Not Detected (NotDetected); Bordetella Pertussis Not Detected (NotDetected); Chlamydophila Pneumoniae, PCR Not Detected (NotDetected); Coronavirus 19, PCR Not Detected (NotDetected); Coronavirus 229E Not Detected (NotDetected); Coronavirus NL63 Not Detected (NotDetected); Coronavirus OC43 Not Detected (NotDetected); Coronovirus HKU1,PCR Not Detected (NotDetected); Human Metapneumovirus Not Detected (NotDetected); Influenza A, PCR Not Detected (NotDetected); Influenza AH1, 2009 Not Detected (NotDetected); Influenza AH1, PCR Not Detected (NotDetected); Influenza AH3,PCR Not Detected (NotDetected); Influenza B, PCR Not Detected (NotDetected); Mycoplasma Pneumoniae, PCR Not Detected (NotDetected); Parainfluenza 1, PCR Not Detected (NotDetected); Parainfluenza 2, PCR Not Detected (NotDetected); Parainfluenza 3, PCR Not Detected (NotDetected); Parainfluenza 4, PCR Not Detected (NotDetected); Respiratory Syncytial Virus Not Detected (NotDetected); Rhinovirus/Enterovirus Not Detected (NotDetected)
== END ==
PROVIDERS: PCP Nurse Practitioner Family; Visit Provider Nurse Practitioner Family
DX: J20.8 Acute bronchitis due to other specified organisms (principal); J32.9 Chronic sinusitis, unspecified; J02.9 Acute pharyngitis, unspecified; R50.81 Fever presenting with conditions classified elsewhere; R50.9 Fever, unspecified; R09.89 Other specified symptoms and signs involving the circulatory and respiratory systems
CPT/HCPCS: 87581; 87632; 87798; C9803; U0003; U0005

== ENCOUNTER → 2022-01-19 10:55 | Outpatient (CLI) | payer OTHER, SELFPAY ==
[2022-01-19 13:21] LABS: Alanine Aminotransferase 24 U/L (12-78); Aspartate Amino Transferase 30 U/L (14-36); Bilirubin,Unconjugated 0.4 mg/dL (0.0-1.1)
[2022-01-19 13:22] LABS: Albumin Level 4.2 g/dl (3.5-5.0); Alkaline Phosphatase 102 U/L (38-126); Bilirubin,Direct 0.2 mg/dl (0.0-0.4); Bilirubin,Indirect 0.3 mg/dL (0.0-0.9); Bilirubin,Total 0.5 mg/dl (0.2-1.3); Chol/HDL Ratio 6.6 (1-3.5); Cholesterol 239 mg/dl (140-200); HDL Cholesterol 36 mg/dl (40-60); Total Protein,Serum 6.8 g/dl (6.3-8.2)
[2022-01-19 13:29] LABS: Triglycerides 673 mg/dl (30-150)
[2022-01-19 13:33] LABS: Direct LDL Cholesterol 57.44 mg/dL (100-129)
== END ==
PROVIDERS: PCP Nurse Practitioner Family; Visit Provider Nurse Practitioner
DX: R00.2 Palpitations (principal); I11.9 Hypertensive heart disease without heart failure; I25.10 Atherosclerotic heart disease of native coronary artery without angina pectoris; E78.2 Mixed hyperlipidemia
CPT/HCPCS: 36415; 80061; 80076

== ENCOUNTER 2022-10-11 09:49 | Emergency (ER) | payer OTHER, SELFPAY ==
[2022-10-11 09:50] VITALS: BP 153/72; PULSE 71; RESP 18; TEMP 36.8; O2SAT 97; BMI 33.3
[2022-10-11 10:02] VITALS: PULSE 66; O2SAT 95
--- NOTE | 2022-10-11 10:20 | PC.NURSE ---
ER Doctor is in with pt
--- NOTE | 2022-10-11 10:24 | PC.NURSE ---
pt to bathroom to void for a post bladder scan
--- NOTE | 2022-10-11 10:34 | PC.NURSE ---
BLADDER SCAN LESS THAN 75MLS POST VOID
[2022-10-11 10:44] VITALS: BP 137/60; PULSE 74; RESP 18; O2SAT 98
--- NOTE | 2022-10-11 11:05 | HMH.EDGENADL ---
Discharge Plan Disposition Patient Disposition: Home, Self-Care Condition: Good Prescriptions Prescriptions: New methocarbamol 500 mg tablet 500 mg PO TID Qty: 21 0RF No Action fluorouracil 5 % cream topical Patient Comments: APPLY CREAM TOPICALLY TWICE DAILY TO AFFECTED AREA ON RIGHT HAND FOR 6 WEEKS benzonatate 100 mg capsule 100 mg PO TID PRN (Reason: cough) Qty: 30 0RF nitroglycerin 0.4 mg tablet, sublingual 0.4 mg SL Q5M PRN (Reason: chest pain) Qty: 30 11RF Rx Instructions: until response; do not exceed 3 doses per event trazodone 50 mg tablet 25 mg PO QHS PRN (Reason: insomnia) 30 Days Qty: 90 3RF Rx Instructions: Take 1/2 tablet or 1 tablet at bedtime as directed. lovastatin 20 mg tablet See Rx Instructions .ROUTE .COMPLEX Qty: 90 0RF Dose Instruction: TAKE 1 TABLET BY MOUTH AT BEDTIME Rx Instructions: TAKE 1 TABLET BY MOUTH AT BEDTIME hydrochlorothiazide 25 mg tablet See Rx Instructions .ROUTE .COMPLEX Qty: 90 0RF Dose Instruction: Take 1 tablet by mouth once daily Rx Instructions: Take 1 tablet by mouth once daily lisinopril 20 mg tablet See Rx Instructions .Route .COMPLEX Qty: 90 0RF Rx Instructions: Take 1 tablet by mouth once daily aspirin 81 mg tablet,delayed release (DR/EC) See Rx Instructions .ROUTE .COMPLEX Qty: 90 0RF Dose Instruction: TAKE 1 TABLET BY MOUTH ONCE DAILY FOR HEART Rx Instructions: TAKE 1 TABLET BY MOUTH ONCE DAILY FOR HEART loratadine [Allergy Relief (loratadine)] 10 mg tablet See Rx Instructions .ROUTE .COMPLEX Qty: 90 0RF Dose Instruction: TAKE 1 TABLET BY MOUTH ONCE DAILY FOR ALLERGIES Rx Instructions: TAKE 1 TABLET BY MOUTH ONCE DAILY FOR ALLERGIES clopidogrel 75 mg tablet See Rx Instructions .ROUTE .COMPLEX Qty: 90 0RF Dose Instruction: Take 1 tablet by mouth once daily Rx Instructions: Take 1 tablet by mouth once daily citalopram 20 mg tablet See Rx Instructions .ROUTE .COMPLEX Qty: 90 0RF Dose Instruction: TAKE 1 TABLET BY MOUTH ONCE DAILY FOR DEPRESSION Rx Instructions: TAKE 1 TABLET BY MOUTH ONCE DAILY FOR DEPRESSION bupropion HCl 75 MG tablet 75 mg PO DAILY Rx Instructions: in am fluticasone propionate 16 GM spray,suspension 1 spray NS QDAY Rx Instructions: administer into each nostril Referrals Follow up/Referrals: Provider,Referral, MD [Primary Care Provider] - See instructions Activity Restrictions/Add. Instructions Additional Instructions/Restrictions: Take the prescribed methocarbamol as directed. You can take Tylenol or ibuprofen as needed. Be cautious with ibuprofen as we discussed because it increases your risk of bleeding. Make an appointment with your primary care provider for reassessment in the next 2 days. Also keep and follow up with any previously scheduled appointments. Return to the emergency department with any new, worsening, or concerning symptoms. Clinical Impressions Clinical Impression: Strain of lumbar region Qualifiers: Encounter type: initial encounter Qualified Code(s): S39.012A - Strain of muscle, fascia and tendon of lower back, initial encounter Instructions Patient Instructions: DI for Low Back Pain Discharge ED Provider: Shakira Quevedo General Adult HPI General Chief complaint: Back Pain/Injury Stated complaint: AO@home 10/05 Back pain Time Seen by Provider: 10/11/22 10:11 Mode of Arrival: Ambulatory Source of Information: Patient Limitations: No Limitations Description of Symptoms (Recalled from ER Triage Doc. 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 History of Present Illness HPI narrative: This 61-year-old female presents to the emergency department with concerns of back pain since
[2022-10-11 11:19] VITALS: BP 119/69; PULSE 71; RESP 16; TEMP 36.8; O2SAT 96
== END 2022-10-11 11:20 | disposition home or self-care (01) ==
PROVIDERS: Emergency Provider Emergency Medicine
DX: S39.012A Strain of muscle, fascia and tendon of lower back, initial encounter (principal); X50.0XXA Overexertion from strenuous movement or load, initial encounter; G47.33 Obstructive sleep apnea (adult) (pediatric)
CPT/HCPCS: 96372; 99283

== ENCOUNTER → 2023-02-07 14:49 | Outpatient (CLI) | payer OTHER, SELFPAY ==
[2023-02-07 12:58] LABS: Basophils % 0.7 % (0.1-2.0); Eosinophils # 0.4 K/mm3 (0.0-0.4); Eosinophils % 7.4 % (0.1-12.0); Hematocrit 34.9 % (37.0-47.0); Hemoglobin 12.2 g/dL (12.2-16.2); Lymphocytes # 1.5 K/mm3 (0.7-4.5); Lymphocytes % 31.3 % (10-50); Mean Corpuscular HGB Conc 35.1 g/dL (31.8-35.4); Mean Corpuscular Hemoglobin 30.2 pg (27.0-31.2); Mean Platelet Volume 7.9 fl (7.4-10.4); Monocytes # 0.2 K/mm3 (0.1-1.0); Monocytes % 4.9 % (1.7-9.3); Neutrophils # 2.7 K/mm3 (1.8-7.8); Neutrophils % 55.7 % (37.0-80.0); Platelet Count 278 K/mm3 (142-424); Red Blood Count 4.05 M/mm3 (4.20-5.40); Red Cell Distribution Width 13.8 % (11.5-17.5); White Blood Count 4.9 K/mm3 (4.8-10.8)
[2023-02-07 13:26] LABS: Alanine Aminotransferase 25 U/L (12-78); Albumin Level 4.4 g/dl (3.5-5.0); Albumin/Globulin Ratio 1.8 (1.1-1.8); Alkaline Phosphatase 86 U/L (38-126); Anion Gap 13.3 mEq/L (5-15); Aspartate Amino Transferase 34 U/L (14-36); Bilirubin,Total 0.6 mg/dl (0.2-1.3); Blood Urea Nitrogen 17 mg/dl (7-17); Calcium 9.5 mg/dl (8.4-10.2); Carbon Dioxide 28 mmol/L (22.0-30.0); Chloride 103 mmol/L (98-107); Chol/HDL Ratio 5.4 (1-3.5); Cholesterol 172 mg/dl (140-200); Estimated Glomerular Filt Rate 72 ml/min (>60); GFR (African American) 87 ML/MIN (>60); Globulin 2.5 g/dL (1.3-3.2); Glucose 109 mg/dl (74-100); HDL Cholesterol 32 mg/dl (40-60); Potassium 4.3 mmoL/L (3.5-5.1); Sodium 140 mmol/L (136-145); Total Protein,Serum 6.9 g/dl (6.3-8.2); Triglycerides 318 mg/dl (30-150); VLDL Cholesterol 64 mg/dL (0-40)
[2023-02-07 13:37] LABS: Direct LDL Cholesterol 67.04 mg/dL (100-129)
[2023-02-07 13:43] LABS: 25-OH Vitamin D, Total 25.1 ng/mL (30-100)
[2023-02-07 13:53] LABS: Microalbumin < 6.000 mg/L (0-16.7)
[2023-02-07 13:57] LABS: Thyroid Stimulating Hormone 2.24 uIU/mL (0.465-4.68)
[2023-02-07 15:40] LABS: Hemoglobin A1C 5.8 % (4.0-6.0)
== END ==
PROVIDERS: PCP Internal Medicine; Visit Provider Internal Medicine
DX: I11.9 Hypertensive heart disease without heart failure (principal); I25.10 Atherosclerotic heart disease of native coronary artery without angina pectoris; R73.03 Prediabetes; E55.9 Vitamin D deficiency, unspecified; E78.5 Hyperlipidemia, unspecified; G62.9 Polyneuropathy, unspecified; Z68.33 Body mass index [BMI] 33.0-33.9, adult
CPT/HCPCS: 80053; 80061; 82043; 82306; 83036; 83735; 84443; 85025

== ENCOUNTER 2024-03-11 11:00 | Outpatient (CLI) | payer MEDICARE, OTHER, SELFPAY ==
[2024-03-11 19:00] LABS: Creatinine,Urine Random 21 mg/dL (Not Estab.)
[2024-03-11 19:02] LABS: Albumin Level 4.2 g/dl (3.5-5.0); Chloride 104 mmol/L (98-107); Microalbumin < 6.000 mg/L (0-16.7)
[2024-03-11 19:03] LABS: Potassium 4.1 mmoL/L (3.5-5.1); Sodium 131 mmol/L (136-145)
[2024-03-11 19:05] LABS: Alanine Aminotransferase 26 U/L (12-78); Anion Gap 5.1 mEq/L (5-15); Aspartate Amino Transferase 31 U/L (14-36); Blood Urea Nitrogen 16 mg/dl (7-17); Carbon Dioxide 26 mmol/L (22.0-30.0); Estimated Glomerular Filt Rate 72 ml/min (>60); GFR (African American) 87 ML/MIN (>60)
[2024-03-11 19:06] LABS: Albumin/Globulin Ratio 1.8 (1.1-1.8); Alkaline Phosphatase 98 U/L (38-126); Bilirubin,Total 0.6 mg/dl (0.2-1.3); Calcium 9.6 mg/dl (8.4-10.2); Chol/HDL Ratio 4.9 (1-3.5); Cholesterol 147 mg/dl (140-200); Globulin 2.3 g/dL (1.3-3.2); Glucose 103 mg/dl (74-100); HDL Cholesterol 30 mg/dl (40-60); Total Protein,Serum 6.5 g/dl (6.3-8.2); Triglycerides 276 mg/dl (30-150); VLDL Cholesterol 55 mg/dL (0-40)
[2024-03-11 19:17] LABS: Direct LDL Cholesterol 62.02 mg/dL (100-129)
== END 2024-03-11 23:59 | disposition home or self-care (01) ==
LOC: LAB.DROPOF 03-12 12:50
PROVIDERS: PCP Internal Medicine; Visit Provider Internal Medicine
DX: E78.2 Mixed hyperlipidemia (principal)
CPT/HCPCS: 80053; 80061; 82043; 82570

== ENCOUNTER 2024-07-18 07:48 | Outpatient (CLI) | payer MEDICARE, SELFPAY ==
--- NOTE | 2024-07-18 07:52 | XR_ITS ---
FINAL REPORT CLINICAL HISTORY: Right shoulder pain COMPARISON: None FINDINGS: 3 views of the right shoulder were obtained. There is no acute fracture or dislocation. There is acromioclavicular joint degenerative disease. Soft tissues are unremarkable. IMPRESSION: Degenerative changes without acute osseous abnormality of the right shoulder. Reviewed, Interpreted and Dictated by Cornelia Cacerse MD Transcribed by Kathy Olivares Authenticated and [facility]
--- NOTE | 2024-07-18 07:52 | XR_ITS ---
FINAL REPORT CLINICAL HISTORY: Left shoulder pain COMPARISON: None FINDINGS: 3 views of the left shoulder were obtained. There is no acute fracture or dislocation. There is mild acromioclavicular joint degenerative disease. Soft tissues are unremarkable. IMPRESSION: Degenerative changes without acute osseous abnormality of the left shoulder. Reviewed, Interpreted and Dictated by Cornelia Caceres MD Transcribed by Kathy Olivares Authenticated and [facility]
== END 2024-07-18 23:59 | disposition home or self-care (01) ==
LOC: RAD 07:50
PROVIDERS: PCP Internal Medicine; Visit Provider Internal Medicine
DX: M25.511 Pain in right shoulder (principal); M25.512 Pain in left shoulder
CPT/HCPCS: 73030

== ENCOUNTER 2024-09-11 16:21 | Outpatient (CLI) | payer MEDICARE, SELFPAY ==
--- OUTSIDE RECORDS SUMMARY | 2024-08-09 13:00 | XMS_ITS | Encounter Summary ---
Author Organization [facility] Address [address] [place] [address] Care Team Providers Care Slag Wheeler Name Role Phone Chase Cordero MD Unavailable [phone] Samy Oh MD Primary Care Provider [phone] Reason for Referral * Clinic-Administered Medication (Routine) - Authorized Specialty Diagnoses / Procedures Referred By Areli basilio Referred To Contact Diagnoses Exudative age-related macular degeneration of both eyes with active choroidal neovascularization (CMS/HCC) Procedures MT BEVACIZUMAB INJECTION Charisse Dukes MD [address] [address] Phone: tel: fax: Referral ID Status Reason Start Date Expiration Date V isits Requested Visits Authorized [id number] Authorized 08/09/2024 02/08/2026 1 1 * Clinic-Administered Medication (Routine) - Authorized Specialty Diagnoses / Procedures Referred By Areli basilio Referred To Contact Diagnoses Exudative age-related macular degeneration of both eyes with active choroidal neovascularization (CMS/HCC) Procedures MT BEVACIZUMAB INJECTION Charisse Dukes MD [address] [address] Phone: tel: fax: Referral ID Status Reason Start Date Expiration Date V isits Requested Visits Authorized [id number] Authorized 08/09/2024 02/08/2026 1 1 Reason for Visit * Reason Comments Macular Degeneration Encounter Details Date Type Department Care Team (Latest Contact Info) Description 08/09/2024 1:00 PM EDT Office Visit [facility] [address] [place] [address] Charisse Dukes MD [address] [address] 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 Most patients experience some blurred vision, floaters, and itching or mild discomfort followingan injection. This typically lasts a few days or less and is normal. 2. If you experience increased levels of eye pain and discomfort, significant decreased vision, flashes of light, increased redness, sensitivity to light, fever or other unexpected symptoms , please contact us immediately. 3. Tylenol or Motrin or Aleve may be taken for a headache after the injection. 4. Avoid rubbing your eyes. 5. You can use artificial tears (Refresh or Systane are brand names) as needed for irritation 6. Always wash your hands prior to putting in eye drops. Call or return to clinic with sudden vision changes including worsening blurring, distortions, or significant flashes or floaters. Consider going to the emergency room if you are unable to reach the clinic on the phone. Call [phone] and ask for the historiography teacher telecommunications project manager if it is after hours or a weekend or holiday. * Progress Notes - Charisse Dukes MD - 08/09/2024 1:00 PM EDT Retina Clinic Note CHIEF COMPLAINT Patient presents for Macular Degeneration HISTORY OF PRESENT ILLNESS: Mckayla Olson is a 63 y.o. female who presents to the clinic today for: HPI 63 year old female is in for a 10-12 week follow up. Patient states eyes have been good over the last couple of weeks. Hasn't had to use eye drops, but has some eye drops just in case they are needed. No issues. Glasses are a year old Last edited by Jonh Ramírez on 08/09/2024 12:59 PM. REVIEW OF SYSTEMS: ROS Positive for: Eyes Negative for: Constitutional, Gastrointestinal, Neurological, Skin, Genitourinary, Musculoskeletal,HENT, Endocrine, Cardiovascular, Respiratory, Psychiatric, Allergic/Imm, Heme/Lymph Last edited by Jonh Ramírez on 08/09/2024 12:59 PM. Negative except for ROS Positive for: Eyes Negative for: Constitutional, Gastrointestinal, Neurological, Skin, Genitourinary, Musculoskeletal,HENT, Endocrine, Cardiovascular, Respiratory, Psychiatric, Allergic/Imm, Heme/Lymph Last edited by Jonh Ramírez on 08/09/2024 12:59 PM. Referring physician: No referring provider defined for this encounter. HISTORICAL INFORMATION: Selected notes from the medical record: CURRENT MEDICATIONS: No current outpatient medications on file. (Ophthalmic Drugs) No current facility-administered medications for this visit. (Ophthalmic Drugs) Current Outpatient Medications (Other) Medication Sig citalopram (CeleXA) 20 MG tablet Take 1 tablet (20 mg) by mouth daily. clopidogrel (Plavix) 75 MG tablet Take by mouth 1 (one) time each day. EQ Aspirin Adult Low Dose 81 MG EC tablet Fenofibrate 50 MG capsule fluticasone (Flonase) 50 MCG/ACT nasal spray hydroCHLOROthiazide (HYDRODiuril) 25 MG tablet lisinopril 20 MG tablet loratadine (Claritin) 10 MG tablet TAKE 1 TABLET BY MOUTH ONCE DAILY FOR ALLERGIES lovastatin (Mevacor) 40 MG tablet Take 1 tablet (40 mg) by mouth daily. nitroglycerin (Nitrostat) 0.4 MG SL tablet DISSOLVE ONE TABLET UNDER THE TONGUE EVERY 5 MINUTES NEEDED FOR CHEST PAIN. DO NOT EXCEED A TOTAL OF 3 DOSES IN 15 MINUTES traZODone (Desyrel) 50 MG tablet TAKE 1/2 TO 1 (ONE-HALF TO ONE) TABLET BY MOUTH ONCE DAILY AT BEDTIME NEEDED FOR INSOMNIA No current facility-administered medications for this visit. (Other) ALLERGIES Allergies Allergen Reactions Atorvastatin Swelling PAST MEDICAL HISTORY Past Medical History: Diagnosis Date Cataract History reviewed. No pertinent surgical history. FAMILY HISTORY History reviewed. No pertinent family history. SOCIAL HISTORY Social History Tobacco Use Smoking status: Former Types: Cigarettes Passive exposure: Past Smokeless tobacco: Never Vaping Use Vaping status: Never Used GENERAL EXAM: General Exam: Neuro: Alert and Oriented x 3, normal mood and affect OPHTHALMIC EXAM: Base Eye Exam Visual Acuity (Snellen - Linear) Right Left Both Dist cc 20/40 20/30 +2 Near sc J1 Correction: Glasses Tonometry (Tonopen, 1:04 PM) Right Left Pressure 18 18 Pupils Pupils Right PERRL Left PERRL Visual Scruggs (Counting fingers) Right Left Full Full Extraocular Movement Right Left Full, Ortho Full, Ortho Neuro/Psych Oriented x3: Yes Mood/Affect: Normal Dilation Both eyes: 1% Tropicamide @ 1:04 PM Slit Lamp and Fundus Exam External Exam Right Left External Normal Normal Slit Lamp Exam Right Left Lids/Lashes Normal for age Normal for age Conjunctiva/Sclera Normal PTR, conjestion Cornea Clear and compact Clear and compact Anterior Chamber Deep and quiet Deep and quiet Iris Normal pupil size and shape Normal pupil size and shape Lens 1+ Nuclear sclerosis 1+ Nuclear sclerosis Anterior Vitreous Normal Normal Fundus Exam Right Left Disc No edema; no vascularization; good color (Krissy 78 d Lens) No edema; no vascularization; good color (Krissy 78 d Lens) Macula CNVM CNVM Vessels Perfused; no tortuosity or abnormality Perfused; no tortuosity or abnormality Periphery Attached; no retinal or choroidal lesions Attached, pigmented flattish choroidal nevus with ? drusen over the surface. No high risk features. IMAGING AND PROCEDURES OCT, Retina - OU - Both Eyes Right Eye Quality was good. Scan locations included subfoveal. Progression has been stable. Left Eye Quality was good. Scan locations included subfoveal. Progression has been stable. Notes Both eyes (OU) Choroidal Neovascular Membrane, no subretinal fluid (SRF) OCT, Retina - OU - Both Eyes Right Eye Quality was good. Scan locations included subfoveal. Progression has been stable. Left Eye Quality was good. Scan locations included subfoveal. Progression has been stable. Notes Both eyes (OU) Choroidal Neovascular Membrane, no subretinal fluid (SRF) Intravitreal Injection, Pharmacologic Agent - OU - Both Eyes Time Out 08/09/2024. 1:44 PM. Confirmed correct patient, procedure, site, and patient consented. Anesthesia Right Eye Topical anesthesia was used. Left Eye Topical anesthesia was used. Procedure Right Eye Preparation included 5% betadine to ocular surface, eyelid speculum. A 30 gauge needle was used. Injection: 1.25 mg Bevacizumab 1.25 MG/0.05ML Route: Intravitreal, Site: Right Eye NDC: 95872-037-57, Lot: [id number], Expiration date: 10/08/2024 Left Eye Preparation included 5% betadine to ocular surface, eyelid speculum. A 30 gauge needle was used. Injection: 1.25 mg Bevacizumab 1.25 MG/0.05ML Route: Intravitreal, Site: Left Eye NDC: 50278-806-14, Lot: [id number], Expiration date: 10/19/2024 Post-op Right Eye Post injection exam found visual acuity of at least counting fingers. The patient tolerated the procedure well. There were no complications. Left Eye Post injection exam found visual acuity of at least counting fingers. The patient tolerated the procedure well. There were no complications. VISIT DIAGNOSES 1. Exudative age-related macular degeneration of both eyes with active choroidal neovascularization(CMS/HCC) OCT, Retina - OU - Both Eyes, Intravitreal Injection, Pharmacologic Agent - OU - Both Eyes, Bevacizumab (Avastin) ophthalmic injection 1.25 mg, Bevacizumab (Avastin) ophthalmic injection 1.25 mg 2. Nuclear senile cataract of both eyes ASSESSMENT AND PLAN: Former pt of Dr Anthony Luke of [facility] Age-related macular degeneration (AMD) both eyes (OU) Right eye (OD): wet with active choroidal neovascular membrane (CNVM) - status post (s/p) IVAx2 with good resolution of fluid per Dr. Luke at [facility], last ADRIAN was 03/07/23 - plan for treat and extend, good initial response to avastin Left eye (OS): Wet, new conversion 05/24/23 - ADRIAN #1 05/24/23, good response Both eyes (OU): good response to ADRIAN at 4 weeks, plan for TXE. Now stable at 10- 12 weeks with ADRIAN! 08/09/24: Stable vision and OCT at 11 weeks. Repeat ADRIAN both eyes (OU) and recheck 10-12 weeks Choroidal nevus, left eye (OS): - slightly elevated nevus along [address] arc[address], - saw Dr. Carson who noted Basal Dimensions 3.5*2.9 mm on Optos Mar 2024, no orange pigment/subretinal fluid (SRF), + drusen - monitor Cataract, both eyes (OU) - early NS, ou - Obs for now Hypertensive retinopathy right eye (OD)>left eye (OS) - mild but with some copper wiring, a flame heme right eye (OD) and changes in vasculature near optic nerve head - encouraged to maintain good BP/BG/lipid control, follow up with primary care Explained the diagnoses, plan, and follow up with the patient and they expressed understanding. Patient expressed understanding of the importance of proper follow up care. No follow-ups on file. There are no Patient Instructions on file for this visit. Electronically signed by: Charisse Dukes MD 08/09/2024 1:53 PM Tobacco Cessation Initiative: Tobacco Use: Medium Risk (08/09/2024) Patient History Smoking Tobacco Use: Former Smokeless Tobacco Use: Never Passive Exposure: Past The patient has been counseled on tobacco cessation: Not Applicable, quit smoking 9 years ago documented in this encounter Plan of Treatment Upcoming Encounters Date Type Department Care Team (Late st Contact Info) Description 10/23/2024 10:15 AM EDT Office Visit [facility] [address] [place] [address] Charisse Dukes MD [address] [address] documented as of this encounter Procedures Procedure Name Priority Date/Time Associated Diagnosis Comments INTRAVITREAL INJECTION, PHARMACOLOGIC AGENT - OU - BOTH EYES Routine 08/09/2024 1:52 PM EDT 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 1:44 PM. Confirmed correct patient, procedure, site, and patient consented. Anesthesia Right Eye Topical anesthesia was used. Left Eye Topical anesthesia was used. Procedure Right Eye Preparation included 5% betadine to ocular surface, eyelid speculum. A 30 gauge needle was used. Injection: 1.25 mg Bevacizumab 1.25 MG/0.05ML Route: Intravitreal, Site: Right Eye NDC: 48661-934-86, Lot: [id number], Expiration date: 10/08/2024 Left Eye Preparation included 5% betadine to ocular surface, eyelid speculum. A 30 gauge needle was used. Injection: 1.25 mg Bevacizumab 1.25 MG/0.05ML Route: Intravitreal, Site: Left Eye NDC: 53872-058-17, Lot: [id number], Expiration date: 10/19/2024 Post-op Right Eye Post injection exam found visual acuity of at least counting fingers. The patient tolerated the procedure well. There were no complications. Left Eye Post injection exam found visual acuity of at least counting fingers. The patient tolerated the procedure well. There were no complications. us Charisse Dukes MD OPHTH CLINIC PROCEDURE S Final Result * OCT, Retina - OU - Both Eyes (08/09/2024 1:27 PM EDT) Anatomical Region Laterality Modality Head Optical Coherenc e Tomography Narrative 08/09/2024 1:27 PM EDT Right Eye Quality was good. Scan locations included subfoveal. Progression has been stable. Left Eye Quality was good. Scan locations included subfoveal. Progression has been stable. Notes Both eyes (OU) Choroidal Neovascular Membrane, no subretinal fluid (SRF) us Charisse Dukes MD OPHTH TOMOGRAPHY Final Result documented in this encounter Visit Diagnoses Diagnosis Exudative age-related macular degeneration of both eyes with active choroidal neovascularization (CMS/HCC)- Primary Nuclear senile cataract of both eyes documented in this encounter Administered Medications Inactive Administered Medications - up to 3 most recent administrations Medication Order MAR Action Action Date Dose Rate Site Bevacizumab (Avastin) ophthalmic injection 1.25 mg 1.25 mg, Intravitreal, Once PRN Procedure, 1 dose, Starting on Mon08/09/24 at 1352, Until Mon08/09/24 at 1352, RoutineIndications:Exudative age-related macular degeneration of both eyes with active choroidal neovascularization (CMS/HCC) Given 08/09/2024 1:52 PM EDT 1.25 mg Right Eye Bevacizumab (Avastin) ophthalmic injection 1.25 mg 1.25 mg, Intravitreal, Once PRN Procedure, 1 dose, Starting on Mon08/09/24 at 1352, Until Mon08/09/24 at 1352, RoutineIndications:Exudative age-related macular degeneration of both eyes with active choroidal neovascularization (CMS/HCC) Given 08/09/2024 1:52 PM EDT 1.25 mg Left Eye documented in this encounter Additional Health Concerns Assessment Noted Time A fall risk assessment has been complete d for the patient 08/09/2024 12:59 PM EDT A Body Mass Index follow-up plan has been documented for the patient 08/09/2024 1:53 PM EDT documented as of this encounter Care Teams Slag Wheeler Relationship Specialty Start Date End Date Samy Oh MD [address] [facility] [address] [place] [address] PCP - General 07/31/24 Chase Cordero MD [address] [facility] [address] [place] [address] 08/07/20 documented as of this encounter
--- OUTSIDE RECORDS SUMMARY | 2024-08-09 13:10 | XMS_ITS | Encounter Summary ---
Author Organization [facility] Address [address] [place] [address] Care Team Providers Care Motor Vehicle Clerk Name Role Phone Chase Cordero MD Unavailable [phone] Samy Oh MD Primary Care Provider [phone] Encounter Details Date Type Department Care Team (Late st Contact Info) Description 08/09/2024 1:10 PM EDT Ancillary Procedure [facility] [address] [place] [address] Social History Tobacco Use Types Packs/Day Years Used Date Smoking Tobacco: Former Cigarettes Passive Smoke Exposure: Past Smokeless Tobacco: Never Comments Unknown Sex and Gender Information Value Date Recorded Sex Assigned at Not on file Legal Sex Female 7:38 PM EDT Gender Identity Not on file Sexual Orientation Not on file documented as of this encounter Plan of Treatment Upcoming Encounters Date Type Department Care Team (Late st Contact Info) Description 10/23/2024 10:15 AM EDT Office Visit [facility] [address] [place] [address] Charisse Dukes MD [address] [address] documented as of this encounter Procedures Procedure Name Priority Date/Time Associated Diagnosis Comments OCT, RETINA - OU - BOTH EYES Routine 08/09/2024 1:27 PM EDT Exudative age-related macular degeneration of both eyes with active choroidal neovascularization (CMS/HCC) documented in this encounter Results * OCT, Retina - OU - Both [...] Result documented in this encounter Visit Diagnoses Not on filedocumented in this encounter Additional Health Concerns Assessment Noted Time A fall risk assessment has been complete d for the patient 08/09/2024 12:59 PM EDT A Body Mass Index follow-up plan has been documented for the patient 08/09/2024 1:53 PM EDT documented as of this encounter Care Teams Motor Vehicle Clerk Relationship Specialty Start Date End Date Samy Oh MD [address] [facility] [address] [place] [address] PCP - General 07/31/24 Chase Cordero MD [address] [facility] [address] [place] [address] 08/07/20 documented as of this encounter
[2024-09-11 12:22] LABS: Basophils # 0.1 K/mm3 (0-0.2); Basophils % 0.9 % (0.1-2.0); Eosinophils # 0.2 Kmm3 (0.0-0.4); Eosinophils % 3.5 % (0.1-12.0); Hematocrit 37.2 % (37.0-47.0); Hemoglobin 12.5 g/dL (12.2-16.2); Immature Granulocytes # 0.05 10^3uL; Immature Granulocytes % 0.9 %; Lymphocytes # 1.4 K/mm3 (0.7-4.5); Lymphocytes % 26.3 % (10-50); Mean Corpuscular HGB Conc 33.6 g/dL (31.8-35.4); Mean Corpuscular Hemoglobin 29.1 pg (27.0-31.2); Mean Corpuscular Volume 86.5 fl (81-99); Mean Platelet Volume 9.9 fl (7.4-10.4); Monocytes # 0.4 K/mm3 (0.1-1.0); Monocytes % 7.1 % (1.7-9.3); Neutrophils # 3.3 K/mm3 (1.8-7.8); Neutrophils % 61.3 % (37.0-80.0); Nucleated Red Blood Cells # 0 10^3/uL; Nucleated Red Blood Cells % 0 %; Platelet Count 270 K/mm3 (142-424); Red Cell Distribution Width 13.4 % (11.5-17.5); Red Cell Distribution Width-SD 41.8 fL; White Blood Count 5.4 K/mm3 (4.8-10.8)
[2024-09-11 12:50] LABS: Alanine Aminotransferase 19 U/L (12-78); Albumin Level 4.4 g/dl (3.5-5.0); Albumin/Globulin Ratio 1.8 (1.1-1.8); Alkaline Phosphatase 83 U/L (38-126); Anion Gap 7.1 mEq/L (5-15); Aspartate Amino Transferase 25 U/L (14-36); Blood Urea Nitrogen 21 mg/dl (7-17); Calcium 10.3 mg/dl (8.4-10.2); Carbon Dioxide 32 mmol/L (22.0-30.0); Chloride 102 mmol/L (98-107); Chol/HDL Ratio 4.4 (1-3.5); Cholesterol 191 mg/dl (140-200); Estimated Glomerular Filt Rate 63 ml/min (>60); GFR (African American) 76 ML/MIN (>60); Globulin 2.5 g/dL (1.3-3.2); Glucose 103 mg/dl (74-100); HDL Cholesterol 43 mg/dl (40-60); Potassium 4.1 mmoL/L (3.5-5.1); Sodium 137 mmol/L (136-145); Total Protein,Serum 6.9 g/dl (6.3-8.2); Triglycerides 246 mg/dl (30-150); VLDL Cholesterol 49 mg/dL (0-40)
[2024-09-11 13:01] LABS: Direct LDL Cholesterol 71.75 mg/dL (100-129)
[2024-09-11 13:31] LABS: Hemoglobin A1C 5.7 % (4.0-6.0)
[2024-09-11 13:37] LABS: Vitamin B12 336 pg/mL (239-931)
--- OUTSIDE RECORDS SUMMARY | 2024-09-11 16:24 | XMS_ITS | Clinical Summary ---
Author Organization [facility] Address [address] [place] [address] Care Team Providers Care Python Architect Name Role Phone Chase Cordero MD Unavailable [phone] Samy Oh MD Primary Care Provider [phone] Allergies Active Allergy Reactions Criticality Noted Date Comments Atorvastatin Swelling High 12/30/2021 Medications EQ Aspirin Adult Low Dose 81 MG EC tablet 3 Active hydroCHLOROthia zide (HYDRODiuril) 25 MG tablet 3 Active lisinopril 20 MG tablet 3 Active lovastatin (Mevacor) 40 MG tablet Take 1 tablet (40 mg) by mouth daily. 3 Active clopidogrel (Plavix) 75 MG tablet Take by mouth 1 (one) time each day. Active citalopram (CeleXA) 20 MG tablet Take 1 tablet (20 mg) by mouth daily. Active fluticasone (Flonase) 50 MCG/ACT nasal spray 4 Active Fenofibrate 50 MG capsule 4 Active nitroglycerin (Nitrostat) 0.4 MG SL tablet DISSOLVE ONE TABLET UNDER THE TONGUE EVERY 5 MINUTES NEEDED FOR CHEST PAIN. DO NOT EXCEED A TOTAL OF 3 DOSES IN 15 MINUTES 4 Active traZODone (Desyrel) 50 MG tablet TAKE 1/2 TO 1 (ONE-HALF TO ONE) TABLET BY MOUTH ONCE DAILY AT BEDTIME NEEDED FOR INSOMNIA 4 Active loratadine (Claritin) 10 MG tablet TAKE 1 TABLET BY MOUTH ONCE DAILY FOR ALLERGIES 4 Active Active Problems Problem Noted Date Diagnosed Date Acute bacterial bronchitis 05/22/2024 Ankle sprain 05/22/2024 CAD (coronary artery disease) 05/22/2024 Coronary arteriosclerosis 05/22/2024 Diaphoresis 05/22/2024 Hyperlipidemia 05/22/2024 Insomnia 05/22/2024 Obstructive sleep apnea-hypopnea syndrome 2024 Palpitations 05/22/2024 Strain of lumbar region 05/22/2024 URI (upper respiratory infection) 05/22/2024 Wrist sprain 05/22/2024 Nevus of choroid of left eye 04/11/2024 Exudative age-related macula r degeneration of both eyes with active choroidal neovascularization 04/11/2024 Nuclear senile cataract of both eyes 04/11/2024 Other vitreous opacities, bilateral 11/01/2023 Exudative age-related macula r degeneration, bilateral, with active choroidal neovascularization 11/01/2023 Atherosclerotic heart diseas e of nikolai coronary artery without angina pectoris 09/15/2023 Mixed hyperlipidemia 09/14/2023 Hypertensive heart disease without heart failure 09/14/2023 Insomnia, unspecified 09/14/2023 Polyneuropathy, unspecified 09/14/2023 Prediabetes 09/14/2023 Vitamin D deficiency 09/14/2023 Age-related nuclear cataract, bilateral 09/04/19 Hypermetropia, bilateral 09/04/2023 Exudative age-related macula r degeneration, right eye, stage unspecified 09/04/2023 Nonexudative age-related mac ular degeneration, left eye, intermediate dry stage 09/04/2023 Bronchitis, not specified as acute or chronic Benign neoplasm of left choroid 05/24/2023 Encounters Date Type Department Care Team Description 08/09/2024 1:10 PM EDT Ancillary Procedure [place] [facility] [address] [place] [address] 08/09/2024 1:00 PM EDT Office Visit [place] [address] [place] [id number] Chraisse Dukes MD Exudative age-related macular degeneration of both eyes with active choroidal neovascularization (CMS/HCC) (Primary Dx); Nuclear senile cataract of both eyes 08/09/2024 Travel 08/08/2024 Travel 07/31/2024 Travel from Last 3 Months Social History Tobacco Use Types Packs/Day Years Used Date Smoking Tobacco: Former Cigarettes Passive Smoke Exposure: Past Smokeless Tobacco: Never Tobacco Cessation:Counseling Given: Yes Comments Unknown Sex and Gender Information Value Date Recorded Sex Assigned at Not on file Legal Sex Female 7:38 PM EDT Gender Identity Not on file Sexual Orientation Not on file Plan of Treatment Upcoming Encounters Date Type Department Care Team (Late st Contact Info) Description 10/23/2024 10:15 AM EDT Office Visit [facility] [address] [place] [address] Charisse Dukes MD [address] [place] [address] Health Maintenance Due Date Last Done Comments [facility]-Bone Density Scan 1958 [facility]-Depression Screening 1958 [facility]-Diabetes: Hemoglobin A1C 1958 [facility]-Hepatitis C Screening 1958 [facility]-Medicare Annual Wellness (AWV) 1958 [facility]-/Child/Adol SDOH Screenings 1958 [facility]- SDOH Screenings 1976 [facility]-Adult SDOH Screenings 1976 [facility]-Pap Smear 12/23/1979 [facility]-Cervical Cancer Screening 1988 [facility]-HPV/Cotest 1988 CT Colonography 12/23/2003 Colonoscopy 12/23/2003 FIT-DNA 12/23/2003 FIT 12/23/2003 FOBT 12/23/2003 Sigmoidoscopy 12/23/2003 [facility]-Colorectal Cancer Screening 12/23/2003 [facility]-Breast Cancer Screening 2008 [facility]-Pneumococcal Vaccine: 50+ Years (1 of 1 - PCV) 2008 [facility]-Zoster Vaccines (1 of 2) 2008 [facility]-[id number]-93 Vaccine (2 - season) 2023 07/01/2020 [facility]-Influenza Vaccine (Season Ended) 2024 12/24/2022, 01/26/2022, 12/30/2020, Additional history exists [facility]-DTaP,Tdap,and Td Vaccines (2 - Td or Tdap) 10/28/2032 10/28/2022, 12/05/2002 [facility]-RSV Vaccine: 60+ Years or (1 - 1-dose 75+ series) 2033 HPV Vaccines Aged Out No longer eligi ble based on patient's age to complete this topic [facility]-HIB Vaccines Aged Out No longer e ligible based on patient's age to complete this topic [facility]-Hepatitis A Vaccines Aged Out No longer eligible based on patient's age to complete this topic [facility]-IPV Vaccines Aged Out No longer e ligible based on patient's age to complete this topic [facility]-Rotavirus Vaccines Aged Out No lo nger eligible based on patient's age to complete this topic Procedures Procedure Name Priority Date/Time Associated Diagnosis Comments INTRAVITREAL INJECTION, PHARMACOLOGIC AGENT - OU - BOTH EYES Routine 08/09/2024 1:52 PM EDT Exudative age-related macular degeneration of both eyes with active choroidal neovascularization (CMS/HCC) OCT, RETINA - OU - BOTH EYES Routine 08/09/2024 1:27 PM EDT Exudative 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 A 30 gauge needle was used. Injection: 1.25 mg Bevacizumab 1.25 MG/0.05ML Route: Intravitreal, Site: Left Eye [facility]: 27105-998-31, Lot: [id number], Expiration date: 10/19/2024 Post-op Right Eye Post injection exam found visual acuity of at least counting fingers. The patient tolerated the procedure well. There were no complications. Left Eye Post injection exam found visual acuity of at least counting fingers. The patient tolerated the procedure well. There were no complications. Charisse Dukes MD OPHTH CLINIC PROCEDURE S [...] Choroidal Neovascular Membrane, no subretinal fluid (SRF) Charisse Dukes MD OPHTH TOMOGRAPHY Final Result from Last [address] [place] [address] [facility] MEDICARE Care Teams Python Architect Relationship Specialty Start Date End Date Samy Oh MD [address] [place] [facility] [address] [place] [address] [facility] - General 07/31/24 Chase Cordero MD [address] [place] [facility] [address] [place], [place] [address] 08/07/20
--- OUTSIDE RECORDS SUMMARY | 2024-09-11 16:24 | XMS_ITS | Encounter Summary ---
Author Organization [facility] Address [address] [place] [address] Care Team Providers Care Power Hammer Operator Name Role Phone Chase Cordero MD Unavailable [phone] Samy Oh MD Primary Care Provider [phone] Encounter Details Date Type Department Care Team (Latest Contact Info) Description 07/31/2024 Travel Social History Tobacco Use Types Packs/Day Years [...] Description 10/23/2024 10:15 AM EDT Office Visit [facility] [address] [place] [address] Charisse Dukes MD [address] [address] documented as of this encounter Visit Diagnoses Not on filedocumented in this encounter Additional Health Concerns Assessment Noted Time A fall risk assessment has been complete d for the patient 05/22/2024 2:12 PM EST A Body Mass Index follow-up plan has been documented for the patient 05/22/2024 3:17 PM EST documented as of this encounter Care Teams Power Hammer Operator Relationship Specialty Start Date End Date Samy Oh MD [address] [facility] [address] [place] [address] PCP - General 07/31/24 Chase Cordero MD [address] [place] [facility] [address] [place] [address] 08/07/20 documented as of this encounter
--- OUTSIDE RECORDS SUMMARY | 2024-09-11 16:24 | XMS_ITS | Encounter Summary ---
Author Organization [facility] Address [address] [place] [address] Care Team Providers Care Brake Specialist Name Role Phone Chase Cordero MD Unavailable [phone] Samy Oh MD Primary Care Provider [phone] Encounter Details Date Type Department Care Team (Latest Contact Info) Description 08/09/2024 Travel Social History Tobacco Use Types Packs/Day [...] Description 10/23/2024 10:15 AM EDT Office Visit [facility] [address] [place] [address] Charisse Dukes MD [address] [place] [address] [address] documented as of this encounter Visit Diagnoses Not on filedocumented in this encounter Additional Health Concerns Assessment Noted Time A fall risk assessment has been complete d for the patient 08/09/2024 12:59 PM EDT A Body Mass Index follow-up plan has been documented for the patient 08/09/2024 1:53 PM EDT documented as of this encounter Care Teams Brake Specialist Relationship Specialty Start Date End Date Samy Oh MD [address] [place] [id number] PCP - General 07/31/24 Chase Cordero MD [address] [place] [facility] [address] [place] [address] 08/07/20 documented as of this encounter
--- OUTSIDE RECORDS SUMMARY | 2024-09-11 16:24 | XMS_ITS | Encounter Summary ---
Author Organization [facility] Address [address] [place] [address] Care Team Providers Care Community Health Nurse Name Role Phone Chase Cordero MD Unavailable [phone] Samy Oh MD Primary Care Provider [phone] Encounter Details Date Type Department Care Team (Latest Contact Info) Description 08/08/2024 Travel Social History Tobacco Use Types Packs/Day [...] Description 10/23/2024 10:15 AM EDT Office Visit [facility] [address] [place] [address] Charisse Dukes MD [address] [address] documented as of this encounter Visit Diagnoses Not on filedocumented in this encounter Additional Health Concerns Assessment Noted Time A fall risk assessment has been complete d for the patient 05/22/2024 2:12 PM EST A Body Mass Index follow-up plan has been documented for the patient 05/22/2024 3:17 PM EST documented as of this encounter Care Teams Community Health Nurse Relationship Specialty Start Date End Date Samy Oh MD [address] [facility] [address] [place] [address] PCP - General 07/31/24 Chase Cordero MD [address] [place] [facility] [address] [place] [address] 08/07/20 documented as of this encounter
== END 2024-09-11 23:59 | disposition home or self-care (01) ==
LOC: LAB.DROPOF 16:22
PROVIDERS: PCP Internal Medicine; Visit Provider Internal Medicine
DX: G62.9 Polyneuropathy, unspecified (principal); I25.10 Atherosclerotic heart disease of native coronary artery without angina pectoris; E78.5 Hyperlipidemia, unspecified; I10 Essential (primary) hypertension; R73.03 Prediabetes
CPT/HCPCS: 80053; 80061; 82607; 83036; 85025

== ENCOUNTER 2025-02-28 08:08 | Emergency (ER) | payer MEDICARE, MEDICAID, SELFPAY ==
[2025-02-28 08:10] VITALS: BP 154/80; PULSE 67; RESP 16; TEMP 36.4; O2SAT 95; BMI 33.6
[2025-02-28 08:21] VITALS: BP 154/80; PULSE 65; O2SAT 94
[2025-02-28] MEDS: METHOCARBAMOL 500MG TABLET 500 MG PO (08:30)
[2025-02-28] MEDS: ACETAMINOPHEN 500MG TAB 1000 MG PO (08:30)
--- NOTE | 2025-02-28 08:30 | ED_ITS ---
Discharge Plan Disposition Patient Disposition: Home, Self-Care Prescriptions Prescriptions: New lidocaine 5 % adhesive patch,medicated 1 patch topical DAILY Qty: 15 0RF Rx Instructions: leave on most painful area for up to 12 hrs prednisone 10 mg tablet 10 mg PO DIRECTED Qty: 12 0RF Rx Instructions: Day 1: take 40mg (4 tabs) Day 2: take 30mg (3 tabs) Day 3: take 20mg (2 tabs) Day 4: take 20mg (2 tabs) Day 5: take 10mg (1 tab) methocarbamol 750 mg tablet 750 mg PO BID PRN (Reason: muscle spasm) Qty: 30 0RF No Action naproxen 500 mg tablet 500 mg PO BID Qty: 60 1RF Rx Instructions: Take with food or meal albuterol sulfate 90 mcg/actuation HFA aerosol inhaler 1 inh inhalation QID Qty: 6.7 2RF cholecalciferol (vitamin D3) 125 mcg (5,000 unit) capsule See Rx Instructions .ROUTE .COMPLEX Qty: 30 0RF Dose Instruction: Take 1 capsule by mouth once daily Rx Instructions: Take 1 capsule by mouth once daily fluticasone propionate 50 mcg/actuation spray,suspension 1 spray NS QDAY Qty: 16 2RF Rx Instructions: administer into each nostril aspirin 81 mg tablet,delayed release (DR/EC) See Rx Instructions .ROUTE .COMPLEX Qty: 90 3RF Dose Instruction: TAKE 1 TABLET BY MOUTH ONCE DAILY FOR HEART Rx Instructions: TAKE 1 TABLET BY MOUTH ONCE DAILY FOR HEART citalopram 20 mg tablet See Rx Instructions .ROUTE .COMPLEX Qty: 90 3RF Dose Instruction: TAKE 1 TABLET BY MOUTH ONCE DAILY FOR DEPRESSION Rx Instructions: TAKE 1 TABLET BY MOUTH ONCE DAILY FOR DEPRESSION lovastatin 40 mg tablet See Rx Instructions .ROUTE .COMPLEX Qty: 90 3RF Dose Instruction: Take 1 tablet by mouth once daily Rx Instructions: Take 1 tablet by mouth once daily nitroglycerin 0.4 mg tablet, sublingual 0.4 mg SL Q5M PRN (Reason: chest pain) Qty: 30 6RF Rx Instructions: until response; do not exceed 3 doses per event hydrochlorothiazide 25 mg tablet See Rx Instructions .ROUTE .COMPLEX Qty: 90 1RF Dose Instruction: Take 1 tablet by mouth once daily Rx Instructions: Take 1 tablet by mouth once daily lisinopril 20 mg tablet See Rx Instructions .ROUTE .COMPLEX Qty: 90 1RF Dose Instruction: TAKE 1 TABLET BY MOUTH ONCE DAILY FOR HIGH BLOOD PRESSURE Rx Instructions: TAKE 1 TABLET BY MOUTH ONCE DAILY FOR HIGH BLOOD PRESSURE loratadine [Allergy Relief (loratadine)] 10 mg tablet See Rx Instructions .ROUTE .COMPLEX Qty: 90 1RF Dose Instruction: TAKE 1 TABLET BY MOUTH ONCE DAILY FOR ALLERGIES Rx Instructions: TAKE 1 TABLET BY MOUTH ONCE DAILY FOR ALLERGIES Referrals Follow up/Referrals: [facility] [Provider Group, Physical Therapy] - See instructions Samy Oh MD [Primary Care Provider, Medical] - See instructions Activity Restrictions/Add. Instructions Additional Instructions/Restrictions: Your symptoms are consistent with sciatica nerve pain. I am prescribing a short course of steroids, lidocaine patches and a muscle relaxer. In addition to this you can take 1000 mg of Tylenol as well as 600 mg of ibuprofen every 6 hours as needed. I am also referring you to physical therapy to help with your sciatic pain. I encourage you to follow-up with them and to follow-up with your primary care doctor. If you develop any new or worsening symptoms, such as numbness or tingling in your genital area, inability to pee or urinating on yourself uncontrollably, inability to control your bowels, fever, or worsening weakness in 1 or both of your legs, return to the emergency department for evaluation. Clinical Impressions Clinical Impression: Sciatica of right side Instructions Patient Instructions: DI for Back Pain With Sciatica Print Language Print Language: Yoruba Discharge ED Provider: Estevan Ny Adult HPI General Chief complaint: PAIN Stated complaint: AO-Pain lower back, R hip Time Seen by Provider: 02/28/25 08:10 Mode of Arrival: Wheelchair Source of Information: Patient Description of Symptoms (Recalled from ER Triage Doc. by RN): pt presents to the ED with lower back pain that radiates to her right hip and leg. pt states on Monday she was putting a mattress cover on when she felt she pulled a muscle. hx of pulled muscles in her back. pt states she has took Ibuprofen at 06:00. History of Present Illness HPI narrative: Mckayla Olson is a 64-year-old female with a history of sciatica, coronary artery disease, hypertensive heart disease, who presents to the emergency department for complaints of right sided lower back pain that radiates down her right leg. Patient states that on Monday (5 days ago), she was putting a sheet on her mattress and lifted the mattress states that she had sudden pain in her right lower back that is now radiating down the back of her right leg and stops before the knee. She states it is painful to walk. She states that she has been taking naproxen, ibuprofen, lidocaine patches and an old muscle relaxer that was previously prescribed to her without significant relief. She states that she woke up with worsening pain this morning. She denies any urinary retention or incontinence. She denies any numbness or tingling in her genital region. She is afebrile. She states that she has had issues with sciatica in the past but has never been to physical therapy. She last took 400 mg of ibuprofen at 0600. Related Data Previous Rx's ?Medication ?Instructions ?Recorded albuterol sulfate 90 mcg/actuation 1 inh inhalation QI D #6.7 grams 09/14/23 aerosol inhaler cholecalciferol (vitamin D3) 125 See Rx Instructions . Route 09/14/23 mcg (5,000 unit) capsule .COMPLEX #30 caps fluticasone propionate 50 1 spray intranasal QDAY Daniel rgy 09/14/23 mcg/actuation nasal symptoms #16 grams spray,suspension aspirin 81 mg tablet,delayed See Rx Instructions .Rout e 03/14/24 release .COMPLEX #90 tabs citalopram 20 mg tablet See Rx Instructions .Route 1 05/15/23 .COMPLEX #90 tabs lovastatin 40 mg tablet See Rx Instructions .Route 1 05/15/23 .COMPLEX #90 tabs nitroglycerin 0.4 mg sublingual 0.4 mg sublingual Q5M PRN chest 03/14/24 tablet pain #30 tabs hydrochlorothiazide 25 mg tablet See Rx Instructions . Route 09/09/24 .COMPLEX #90 tabs lisinopril 20 mg tablet See Rx Instructions .Route 0 09/09/24 .COMPLEX #90 tabs loratadine 10 mg tablet (Allergy See Rx Instructions . Route 09/09/24 Relief (loratadine)) .COMPLEX #90 tabs naproxen 500 mg tablet 500 mg PO BID For back pain #60 10/08/24 tabs lidocaine 5 % topical patch 1 patch topical DAILY #15 ea 02/28/25 methocarbamol 750 mg tablet 750 mg PO BID PRN muscle s pasm #30 02/28/25 tabs prednisone 10 mg tablet 10 mg PO DIRECTED #12 tab s 02/28/25 Allergies Allergy/AdvReac Type Severity Reaction Status Date / Time atorvastatin (From LIPITOR) Allergy Unknown Unknown Verified 02/10/25 09:10 allergy reaction [facility] Disclaimer: The information contained in this section may have been updated after the patient was seen, as this information can be updated by other users. Medical History Peripheral neuropathy Prediabetes Diaphoresis Palpitations Insomnia CAD (coronary artery disease) Obstructive Sleep Apnea-Hypopnea Syndrome Vitamin D deficiency Hyperlipidemia Hypertensive heart disease without heart failure Coronary arteriosclerosis Surgical History Hx of heart artery stent Hx of hysterectomy Family History Other Cancer Coronary artery disease Diabetes Heart attack Hyperlipidemia Hypertension Social History Smoking Status: Never smoker second hand exposure: No alcohol intake: former substance use type: denies use current occupational status: disabled Travel in the last 8 weeks?: None household members: children housing: house caffeine: Yes Have you lived/traveled outside US in past 30 days?: No Contact w/someone who lives/traveled outside US past 30 days?: No Exposure to someone with infectious disease in past 14 days?: No Do you have a fever (greater than 100.4 F or 38 C)?: No Have you tested positive for COVID-19?: No Exposed to someone with COVID-19 in past 14 days?: No Do you have a sore throat?: No Do you have a cough?: No Do you have any weakness?: No Do you have any diarrhea?: No Are you experiencing any unusual bleeding?: No Do you have any muscle aches/pain?: No Do you have any abdominal pain?: No Are you experiencing loss of taste or smell?: No Other Medical History Have you received the Flu Vaccine for this season: Yes Have you received the Pneumonia Vaccine: No ROS Obtained: Yes Systems reviewed as appropriate & no additional complaints except as documented Physical Exam General General appearance: alert Comment: In no respiratory distress Head Head exam: atraumatic Eye Eye exam: Present normal appearance ENT ENT exam: Present normal external ear exam Neck Neck exam: Present full ROM Chest Chest inspection: Present symmetric chest wall rise Respiratory Respiratory exam: Present normal lung sounds bilaterally; Absent respiratory distress Cardiovascular Cardiovascular exam: Present regular rate and normal rhythm Abdominal Exam Abdominal exam: Present soft; Absent tenderness or guarding Extremities Exam Extremities exam: Present normal inspection Back Exam Back exam: Present normal inspection, paraspinal tenderness (right lumbar paraspinal tenderness), straight leg raise (R) and straight leg raise (L); Absent vertebral tenderness Neurological Exam Neurological exam: Present alert, oriented X3 and other (Right lower extremity: 2+ PT and DP pulses. Flexion and extension 5 out of 5 at the knee. 5 out of 5 strength with plantar and dorsiflexion at the ankle. Limited hip flexion secondary to pain in the right back and thigh. Sensation grossly intact throughout the entire right lower extremity) Psychiatric Psychiatric exam: Present normal affect Skin Skin exam: Present warm and dry Medical Decision Making Medical Records Screening: Per USPSTF and CDC recommendations, given the prevalence of disease in our region, it is our hospital?s policy to screen for HIV and viral Hepatitis for all patients aged 18 and over and those with ongoing risk factors. Marco A Inquiry Pt receiving controlled substance: No Vital Signs: 02/28/25 08:10 02/28/25 08:10 Temperature 97.6 F 97.6 F Temperature Source Oral Oral Pulse Rate 67 Pulse Rate [Right] 67 Respiratory Rate 16 16 Blood Pressure 154/80 H Blood Pressure [Right Radial Artery] 154/80 H Blood Pressure Mean [Right Radial Artery] 104 Blood Pressure Source Automatic Cuff Blood Pressure Source [Right Radial Artery] Automatic Cuff Blood Pressure Position Supine Blood Pressure Position [Right Radial Artery] Supine 02 Sat by Pulse Oximetry 95 95 Oxygen Delivery Method Room Air Room Air Orders (Tests/Meds): ED MEDICATIONS Discontinued Medications Generic Name Dose Route Start Last Admin Trade Name Freq PRN Reason Stop Dose Admin Acetaminophen 1,000 mg 02/28/25 08:19 Acetaminophen 500mg Tab PO 02/28/25 08:20 ONCE ONE Lidocaine 1 each 02/28/25 08:19 Lidocaine 5% Transdermal Patch TD 02/28/25 08:20 ONCE ONE Methocarbamol 500 mg 02/28/25 08:19 Methocarbamol 500mg Tablet PO 02/28/25 08:20 ONCE ONE Medical Decision Narrative: Mckayla Olson is a 64-year-old female with a history of sciatica, coronary artery disease, hypertensive heart disease, who presents to the emergency department for complaints of right sided lower back pain that radiates down her right leg. Patient states that on Monday (5 days ago), she was putting a sheet on her mattress and lifted the mattress states that she had sudden pain in her right lower back that is now radiating down the back of her right leg and stops before the knee. She states it is painful to walk. She states that she has been taking naproxen, ibuprofen, lidocaine patches and an old muscle relaxer that was previously prescribed to her without significant relief. She states that she woke up with worsening pain this morning. She denies any urinary retention or incontinence. She denies any numbness or tingling in her genital region. She is afebrile. She states that she has had issues with sciatica in the past but has never been to physical therapy. She last took 400 mg of ibuprofen at 0600. On arrival, patient is slightly hypertensive but hemodynamically stable, afebrile, maintaining appropriate oxygen saturation on room air. Physical exam, stated above, revealed nontoxic-appearing female in no respiratory distress. Flexion extension 5 out of 5 at the knee on the right as well as 5 out of 5 strength with dorsiflexion plantarflexion of the ankle. Hip flexor is intact, however limited secondary to pain. Positive straight leg legs bilaterally. Patient has tenderness over the right lumbar paraspinal area. Sensation grossly intact to the right lower extremity. Pulses intact. Patient has no red flag symptoms to suggest cauda equina. She has not had any trauma to suggest vertebral body fracture. I do feel that her symptomatology is most consistent with sciatica as she has had similar type pain in the past and it follows a sciatic nerve distribution and that no CT or x-ray imaging is indicated at this time as it would not change ED management. Patient states that she has been taking naproxen on top of ibuprofen. I encouraged her to take 1 but not both due to risk of GI bleed/ulcers. Discussed giving patient short course of steroids, Robaxin, Tylenol, lidocaine patches and to continue ibuprofen at home and will refer patient to physical therapy for sciatic nerve pain. Patient was given a dose of Tylenol, lidocaine patch as well as Robaxin here in the emergency department. Patient states that she is no driving home. Will send prescription for Robaxin, prednisone and lidocaine patches to her pharmacy. Return precautions were given for any red flag symptoms. All questions were answered. She demonstrated understanding and was agreement this plan. She was then discharged from the emergency department in stable condition. Critical Care Critical Care Time Critical Care Time: No
[2025-02-28] MEDS: LIDOCAINE 5% TRANSDERMAL PATCH 1 EACH TD (08:31)
[2025-02-28 08:40] VITALS: BP 154/80; PULSE 69; RESP 16; TEMP 36.4; O2SAT 97
== END 2025-02-28 08:45 | disposition home or self-care (01) ==
PROVIDERS: Emergency Provider Student in an Organized Health Care Education/Training Program; PCP Internal Medicine
DX: M54.31 Sciatica, right side (principal); M54.50 Low back pain, unspecified; M25.551 Pain in right hip; X50.0XXA Overexertion from strenuous movement or load, initial encounter
CPT/HCPCS: 99283; 99284

== ENCOUNTER 2025-03-11 10:30 | Outpatient (CLI) | payer MEDICARE, MEDICAID, SELFPAY ==
--- NOTE | 2025-03-11 | CA_ITS ---
APPROVED REPORT Exam: Pharmacologic Technologist: Tigist Wang Stress Nurse: Avinash Pete Ht: 5 ft 5 in Wt: 210 lbs BSA: 2.02 m2 HR: 69 bpm BP: 128/69 mmHg Rhythm: NSR Medical History Medications: Albuterol, Aspirin, Vitamin D3, Citalopram, Flonase, HCTZ, Lisinopril, Loratadine, Lovastatin, Naproxen, Nitroglycerin. Allergies: Atorvastatin Stress Test Details Test: Exercise stress testing was performed using a modified Anuj protocol. HR Resting HR: 69 bpm Max Heart Rate (APMHR): 154.172754 bpm Max HR Achieved: 129 bpm Target HR (85% APMHR): 130.593800 bpm % of APMHR: 83.77 Recovery HR: 85 bpm BP Resting BP: 128.0/69.0 mmHg Max BP: 162.0/90.0 mmHg Recovery BP: 146.0/71.0 mmHg ECG Resting ECG: SR. No ischemia or ectopy. Clinical Highest Stage Achieved: I Stress ECG Conclusion Paused protocol in stage I due to leg pain, SOA. Injected at 3:45 HR 129. Symptoms: SOA. Leg pain, BLE-claudication. Arrhythmias/Ectopy: None. ST-T Changes: None. Electronically signed by : Lindy Verdugo MD 03/14/2025 13:35:39
--- OUTSIDE RECORDS SUMMARY | 2025-03-11 10:57 | XMS_ITS | Clinical Summary ---
Author Organization [facility] Address [address] [place] [address] Care Team Providers Care Insurance Writer Name Role Phone Chase Cordero MD Unavailable Samy Oh MD Primary Care Provider [phone] Allergies Active Allergy Reactions Criticality Noted Date [...] MOUTH ONCE DAILY FOR ALLERGIES 4 Active famotidine (Pepcid) 40 MG tablet as needed. Active Active Problems Problem Noted Date Diagnosed Date Acute bacterial bronchitis 05/22/2024 Ankle sprain 05/22/2024 CAD (coronary artery disease) 05/22/2024 Coronary arteriosclerosis 05/22/2024 Diaphoresis 05/22/2024 Hyperlipidemia 05/22/2024 Insomnia 05/22/2024 Obstructive sleep apnea-hypopnea syndrome 2024 Palpitations 05/22/2024 Strain of lumbar region 05/22/2024 Wrist sprain 05/22/2024 Nevus of choroid of left eye 04/11/2024 Exudative age-related macula r degeneration of both eyes with active choroidal neovascularization 04/11/2024 Nuclear senile cataract of both eyes 04/11/2024 Other vitreous opacities, bilateral 11/01/2023 Exudative age-related macula r degeneration, bilateral, with active choroidal neovascularization 11/01/2023 Atherosclerotic heart diseas e of [place] coronary artery without angina pectoris 09/15/2023 Mixed hyperlipidemia 09/14/2023 Hypertensive heart disease without heart failure 09/14/2023 Insomnia, unspecified 09/14/2023 Polyneuropathy, unspecified 09/14/2023 Prediabetes 09/14/2023 Vitamin D deficiency 09/14/2023 Age-related nuclear cataract, bilateral 09/04/19 Hypermetropia, bilateral 09/04/2023 Exudative age-related macula r degeneration, right eye, stage unspecified 09/04/2023 Nonexudative age-related mac ular degeneration, left eye, intermediate dry stage 09/04/2023 Benign neoplasm of left choroid 05/24/2023 Resolved Problems Problem Noted Date Diagnosed Date Resolved Date URI (upper respiratory infection) 05/22/2024 12/15/2024 Bronchitis, not specified as acute or chronic 07/10/1912/15/2024 Encounters Date Type Department Care Team Description 01/01/2025 11:35 AM EDT Ancillary Procedure [place] [facility] [address] [place] [address] 01/01/2025 10:15 AM EDT Office Visit [place] [facility] [address] [place] [address] Charisse Dukes MD Exudative age-related macular degeneration of both eyes with active choroidal neovascularization (CMS/HCC) (Primary Dx); Nuclear senile cataract of both eyes; Nevus of choroid of left eye 01/01/2025 Travel from Last 3 Months Social History [...] Care Team (Late st Contact Info) Description 04/09/2025 11:00 AM EST Office Visit [facility] [address] [place] [address] Charisse Dukes MD [address] [address] Health Maintenance Due Date Last Done Comments [facility]-Bone Density Scan 1958 [facility]-Depression Screening 1958 [facility]-Diabetes: Hemoglobin A1C 1958 [facility]-Hepatitis C Screening 1958 [facility]-Medicare Annual Wellness (AWV) 1958 [facility]-Infant/Child/Adol SDOH Screenings 1958 [facility]- SDOH Screenings 1976 [facility]-Adult SDOH Screenings 1976 CT Colonography 12/23/2003 Colonoscopy 12/23/2003 [facility]-DNA 12/23/2003 FIT 12/23/2003 FOBT 12/23/2003 Sigmoidoscopy 12/23/2003 [facility]-Colorectal Cancer Screening 12/23/2003 [facility]-Breast Cancer Screening 2008 [facility]-Pneumococcal Vaccine: 50+ Years (1 of 1 - PCV) 2008 [facility]-Zoster Vaccines (1 of 2) 2008 [id number] Vaccine (2 - season) 2024 07/01/2020 [facility]-DTaP,Tdap,and Td Vaccines (2 - Td or Tdap) 10/28/2032 10/28/2022, 12/05/2002 [facility]-RSV Vaccine: 60+ Years or (1 - 1-dose 75+ series) 2033 [facility]-Influenza Vaccine Completed 12/21/2024 , 12/24/2022, 01/26/2022, Additional history exists HPV Vaccines (No Doses Required) Completed [facility]-HIB Vaccines Aged Out No longer e [...] AGENT - OU - BOTH EYES Routine 01/01/2025 12:23 PM EDT Exudative age-related macular degeneration of both eyes with active choroidal neovascularization (CMS/HCC) OCT, RETINA - OU - BOTH EYES Routine 01/01/2025 11:30 AM EDT Exudative age-related macular degeneration of both eyes with active choroidal neovascularization (CMS/HCC) from Last 3 Months Results * Intravitreal Drug Injection - OU - Both Eyes (01/01/2025 12:23 PM EDT) Anatomical Region Laterality Modality Head Other Narrative 01/06/2025 12:45 PM EDT Time Out 01/01/2025. 12:23 PM. Confirmed correct patient, procedure, site, and patient consented. Anesthesia Right Eye Topical anesthesia was used. Left Eye Topical anesthesia was used. Procedure Right Eye Preparation included 5% betadine to ocular surface, eyelid speculum. A 30 gauge needle was used. Injection: 1.25 mg bevacizumab 2.25 MG/0.09ML Route: Intravitreal, Site: Right Eye [facility]: 32364-745-97, Lot: [id number], Expiration date: 01/12/2025 Left Eye Preparation included 5% betadine to ocular surface, eyelid speculum. A 30 gauge needle was used. Injection: 1.25 mg bevacizumab 2.25 MG/0.09ML Route: Intravitreal, Site: Left Eye [facility]: 88340-248-94, Lot: [id number], Expiration date: 02/17/2025 Post-op Right Eye Post injection exam found visual acuity of at least counting fingers. The patient tolerated the procedure well. There were no complications. Post injection medications were not given. Left Eye Post injection exam found visual acuity of at least counting fingers. The patient tolerated the procedure well. There were no complications. Post injection medications were not given. Charisse Dukes MD OPHTH CLINIC PROCEDURE S Final Result * OCT, Retina - OU - Both Eyes (01/01/2025 11:30 AM EDT) Anatomical Region Laterality Modality Head Optical Coherenc e Tomography Narrative 01/06/2025 12:46 PM EDT Right Eye Quality was good. Scan locations included subfoveal. Progression has been stable. Left Eye Quality was good. Scan locations included subfoveal. Progression has been stable. Notes Both eyes (OU) Choroidal Neovascular Membrane, no subretinal fluid (SRF), mild PED OU but largely stable Charisse Dukes MD OPHTH TOMOGRAPHY Final Result from Last [address] [place] [address] [place]IC[place] Member Subscriber Plan / Payer (Ef fective 2024-Present) Name:Mckayla Olson Member ID:[id number] Relation to Subscriber:Self Name:Mckayla Olson Subscriber ID:[id number] Payer ID:MEDICARE Group ID:Not on file Type:Medicare Address: [address] Care Teams Insurance Writer Relationship Specialty Start Date End Date Samy Oh MD [address] [facility] [address] [place] [address] PCP - General 07/31/24 Chase Cordero MD [address] [facility] [address] [place] [address] 08/07/20
--- NOTE | 2025-03-11 11:30 | NM_ITS ---
APPROVED REPORT Exam: Nuclear Stress Test Indication: CAD, Hx of HI, HTN, High cholesterol, Former tobacco use, Family history Patient Location: Outpatient Stress Tech: Tigist Mitchell [place] Tech:Lainey Downey, ARRT, RT (R)(N) Ht: 5 ft 5 in Wt: 210 lbs Bra Size: 40C HR: 69 bpm BP: 128/69 mmHg BSA: 2.02 m2 TID: 0.93 BMI: 34.9 History: CAD, Hx of HI, HTN, High cholesterol, Former tobacco use, Family history Procedure: Patient exercised on Anuj protocol 4:47 minutes and sec, resting heart rate 69 bpm, resting blood pressure 128/69 mmHg, with exercise maximum heart rate achived was 129 bpm which is 83 % of the maximum predicted heart rate and blood pressure was 162/90 mmHg. Test was stopped due to SOB and leg fatigue. Patient denied any complaint of chest pain. Patient has fair exercise capacity, achieved 4.7 METs of workload on treadmill, the blood pressure response to exercise was normal. Cardiac Stress and Resting SPECT Images: Cardiac Stress and Resting SPECT images were obtained using technetium 99m Myoview 31.6 mCi stress and 10.41 mCi at rest. Resting and stress imaging in supine and prone positions demonstrate a medium-sized, moderate, predominantly fixed perfusion defect in the mid to distal anterior LV wall. There is a small region of reversibility towards the distal anterior LV wall. Gated imaging demonstrates normal global LV systolic function. LVEF is calculated at 64%. Conclusion: Medium-sized, moderate, predominantly fixed perfusion defect in the mid to distal anterior LV wall. There is a small region of reversibility towards the distal anterior LV wall. Findings are suggestive of reversible ischemia. Gated imaging demonstrates normal global LV systolic function. LVEF is calculated at 64%. Electronically signed by : Lindy Verdugo MD 03/14/2025 13:19:38
[2025-03-11] MEDS: SODIUM CHLORIDE 0.9% 10ML SYR (RAD ONLY) 10 ML IV ×2 (13:20)
[2025-03-11] MEDS: ISOTOPE MYOVIEW (PER STUDY) 1 DOSE IV (13:20)
== END 2025-03-11 23:59 | disposition home or self-care (01) ==
LOC: RAD 10:30
PROVIDERS: PCP Internal Medicine; Visit Provider Physician Assistant
DX: I25.10 Atherosclerotic heart disease of native coronary artery without angina pectoris (principal); I25.2 Old myocardial infarction; I10 Essential (primary) hypertension; E78.00 Pure hypercholesterolemia, unspecified; R94.39 Abnormal result of other cardiovascular function study; R00.2 Palpitations; R42 Dizziness and giddiness; R94.31 Abnormal electrocardiogram [ECG] [EKG]; Z87.891 Personal history of nicotine dependence
CPT/HCPCS: 78452; 93017; 93018; A9502